=== PATIENT | male | born 1985 | race Caucasian/White ===

== ENCOUNTER 2016-05-04 10:07 | Emergency (ER) | payer OTHER ==
[2016-05-04 10:16] VITALS: BP 174/81; PULSE 93; RESP 16; TEMP 97.7
--- NOTE | 2016-05-04 11:37 | ED ---
Back Pain HPI - General Chief Complaint: Back Pain/Injury Stated Complaint: back injury, [facility] Time Seen by Provider: 05/04/16 10:36 Source: patient, RN notes reviewed Limitations: no limitations - History of Present Illness Initial Comments: Patient is a 30-year-old male presents to the emergency room for evaluation of back pain. Patient states he was at work around 7:30 this morning and went to twist to the left and felt a sharp pain under his right shoulder blade. Patient states since then the pain has gotten worse. Patient states the pain does radiate to his lower back. Patient denies taking anything for pain. Patient states he was sent here to be released for work. Patient states pain is worse when he moves. Patient denies trouble urinating. Patient denies fecal or urinary incontinence. Patient denies numbness or tingling going down his legs. Patient denies saddle anesthesia. Patient denies any other injuries during incident. Patient denies chest pain or shortness of breath. Patient denies headache or dizziness. - Related Data Previous Rx's Medication Instructions Recorded HYDROcodone/APAP 5-325MG [Brussels 1 tab PO Q6HR PRN #12 tab 05/04/16 5-325] Ibuprofen [Motrin] 800 mg PO Q6HR PRN #20 tab 05/04/16 Allergies Allergy/AdvReac Type Severity Reaction Status Date / Time Penicillins Allergy Unknown Verified 05/04/16 11:12 Childhood Review of Systems ROS Statement: Those systems with pertinent positive or pertinent negative responses have been documented in the HPI. ROS Other: All systems not noted in ROS Statement are negative. Past Medical History Past Medical History: No Reported History History of Any Multi-Drug Resistant Organisms: None Reported Past Surgical History: No Surgical Hx Reported Past Psychological History: No Psychological Hx Reported Smoking Status: Never smoker Past Alcohol Use History: None Reported Past Drug Use History: None Reported General Exam - General Exam Comments Initial Comments: Any up in exam room, uncomfortable secondary to pain, no acute distress. Limitations: no limitations General appearance: alert, in no apparent distress Head exam: Present: atraumatic, normocephalic, normal inspection Eye exam: Present: normal appearance ENT exam: Present: normal exam Neck exam: Present: normal inspection Respiratory exam: Present: normal lung sounds bilaterally. Absent: respiratory distress Cardiovascular Exam: Present: regular rate, normal rhythm, normal heart sounds Extremities exam: Present: normal inspection Back exam: Present: normal inspection, muscle spasm (right paraspinal muscle of the mid thoracic and lumbosacral spine), paraspinal tenderness (Paraspinal muscle tenderness on the right side of the mid thoracic and lumbosacral spine) Neurological exam: Present: alert, oriented X3, CN II-XII intact Psychiatric exam: Present: normal affect, normal mood Skin exam: Present: warm, dry, intact, normal color. Absent: rash Course Vital Signs 05/04/16 10:14 Temperature 97.7 F Pulse Rate 93 Respiratory 16 Rate Blood Pressure 174/81 O2 Sat by Pulse 99 Oximetry Medical Decision Making - Medical Decision Making Patient is a 30-year-old male presents emergency room for evaluation of back pain. Patient has no neuro deficits. Patient refused any pain medications. Patient states he wanted a work note to go back to work. Will send patient home with pain medications. Advised patient to take twice a day off and to [place] feels tomorrow morning. Patient states her symptoms not this discussed with him. Return parameters discussed. Disposition Clinical Impression: Strain of mid-back Disposition: HOME SELF-CARE Condition: Good Instructions: Acute Low Back Pain (ED) Additional Instructions: Ice on and off for 10-15 minutes at a time for the next 24-48 hours. Rest. Take ibuprofen as needed for pain. Take Brussels as needed for severe pain. Please follow up with primary care provider in 1-2 days. If any new symptom arises or symptoms worsen, return to ER as soon as possible. Prescriptions: HYDROcodone/APAP 5-325MG [Brussels 5-325] 1 tab PO Q6HR PRN #12 tab PRN Reason: Pain Ibuprofen [Motrin] 800 mg PO Q6HR PRN #20 tab PRN Reason: Pain Referrals: None,Stated [Primary Care Provider] - 1-2 days Time of Disposition: 11:35
== END 2016-05-04 11:54 | disposition home or self-care (01) ==
LOC: EC 10:07
DX: S29.012A Strain of muscle and tendon of back wall of thorax, initial encounter (principal); Z88.0 Allergy status to penicillin; X50.1XXA Overexertion from prolonged static or awkward postures, initial encounter; Y92.69 Other specified industrial and construction area as the place of occurrence of the external cause
CPT/HCPCS: 99283

== ENCOUNTER 2019-09-17 09:05 | Emergency (ER) | payer OTHER ==
[2019-09-17] MEDS ORDERED: ASPIRIN 81 MG PO STA (09:19)
[2019-09-17] MEDS ORDERED: SODIUM CHLORIDE 0.9% 500 ML 500 ML IV STA (09:19)
[2019-09-17 09:21] VITALS: PULSE 95; RESP 18; TEMP 98
--- NOTE | 2019-09-17 09:25 | ED ---
General Adult HPI - General Chief complaint: Chest Pain Stated complaint: chest pain Time Seen by Provider: 09/17/19 09:07 Source: patient, EMS, RN notes reviewed Mode of arrival: EMS Limitations: no limitations - History of Present Illness Initial comments: Patient is an obese 34-year-old male presenting to the emergency room for chest pain. 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 Patient states his chest then became numb. Patient states he went to sit down with his body was and after several minutes the pain resolved. EMS was called and she was brought to the emergency room. Patient does have a history of hypertension for which she takes lisinopril. Patient does not take any other medication. Denies history of diabetes. Patient denies history of DC in immediate family. patient denies any diaphoresis or nausea with this. Pain was not exertional. Patient has no other complaints at this time including shortness of breath, abdominal pain, nausea or vomiting, headache, or visual changes. - Related Data Home Medications Medication Instructions Recorded Confirmed Lisinopril-Hctz 10-12.5 mg 1 tab PO DAILY 09/17/19 09/17/19 [Zestoretic 10-12.5] Allergies Allergy/AdvReac Type Severity Reaction Status Date / Time Penicillins Allergy Unknown Verified 09/17/19 10:50 Childhood Review of Systems ROS Statement: Those systems with pertinent positive or pertinent negative responses have been documented in the HPI. ROS Other: All systems not noted in ROS Statement are negative. Past Medical History Past Medical History: Hypertension History of Any Multi-Drug Resistant Organisms: None Reported Past Surgical History: No Surgical Hx Reported Past Psychological History: No Psychological Hx Reported Smoking Status: Never smoker Past Alcohol Use History: None Reported Past Drug Use History: None Reported General Exam Limitations: no limitations General appearance: alert, in no apparent distress Head exam: Present: atraumatic, normocephalic, normal inspection Eye exam: Present: normal appearance, PERRL, EOMI. Absent: scleral icterus, conjunctival injection, periorbital swelling ENT exam: Present: normal exam, mucous membranes moist Neck exam: Present: normal inspection, full ROM. Absent: tenderness, meningismus, lymphadenopathy Respiratory exam: Present: normal lung sounds bilaterally. Absent: respiratory distress, wheezes, rales, rhonchi, stridor Cardiovascular Exam: Present: regular rate, normal rhythm, normal heart sounds. Absent: systolic murmur, diastolic murmur, rubs, gallop, clicks GI/Abdominal exam: Present: soft, normal bowel sounds. Absent: distended, tenderness, guarding, rebound, rigid Neurological exam: Present: alert Course Vital Signs 09/17/19 09:17 Temperature 98 F Pulse Rate 95 Respiratory 18 Rate Blood Pressure 142/83 O2 Sat by Pulse 99 Oximetry EKG Findings - EKG Comments: EKG Findings:: Normal sinus rhythm, ventricular rate 100, WV interval 178, QTC 448 Medical Decision Making - Medical Decision Making Vitals are stable. EKG is unremarkable, no obvious ischemic changes. CBC CMP are unremarkable. Troponin is negative. D-dimer is normal. Chest x-ray shows no acute process. Patient remains pain-free here in the emergency room. Discussed this case with Dr. Caceres. Pain is atypical in nature. Patient denies any diaphoresis nausea or shortness of breath with this pain. It only lasted minutes and was sharp in nature. Patient will follow up with primary care and return here for any worsening symptoms. - Lab Data Result diagrams: 09/17/19 09:35 09/17/19 09:35 Lab Results 09/17/19 09/17/19 09/17/19 Range/Units 09:35 09:35 09:35 WBC 10.8 H (3.8-10.6) k/uL RBC 5.09 (4.30-5.90) m/uL Hgb 13.8 (13.0-17.5) gm/dL Hct 43.3 (39.0-53.0) % MCV 85.0 (80.0-100.0) fL MCH 27.2 (25.0-35.0) pg MCHC 32.0 (31.0-37.0) g/dL RDW 14.0 (11.5-15.5) % Plt Count 278 (150-450) k/uL Neutrophils % 69 % Lymphocytes % 22 % Monocytes % 4 % Eosinophils % 3 % Basophils % 1 % Neutrophils # 7.5 (1.3-7.7) k/uL Lymphocytes # 2.4 (1.0-4.8) k/uL Monocytes # 0.4 (0-1.0) k/uL Eosinophils # 0.4 (0-0.7) k/uL Basophils # 0.1 (0-0.2) k/uL PT 9.5 (9.0-12.0) sec INR 0.9 (<1.2) APTT 23.1 (22.0-30.0) sec D-Dimer 0.26 (<0.60) mg/L FEU Sodium 137 (137-145) mmol/L Potassium 4.4 (3.5-5.1) mmol/L Chloride 103 (98-107) mmol/L Carbon Dioxide 26 (22-30) mmol/L Anion Gap 8 mmol/L BUN 18 (9-20) mg/dL Creatinine 0.85 (0.66-1.25) mg/dL Est GFR (CKD-EPI)AfAm >90 (>60 ml/min/1.73 sqM) Est GFR (CKD-EPI)NonAf >90 (>60 ml/min/1.73 sqM) Glucose 108 H (74-99) mg/dL Calcium 9.6 (8.4-10.2) mg/dL Magnesium 1.9 (1.6-2.3) mg/dL Total Bilirubin 0.6 (0.2-1.3) mg/dL AST 31 (17-59) U/L ALT 36 (4-49) U/L Alkaline Phosphatase 61 (38-126) U/L Troponin I (0.000-0.034) ng/mL Total Protein 6.8 (6.3-8.2) g/dL Albumin 4.2 (3.5-5.0) g/dL Lipase 53 (23-300) U/L 09/17/19 Range/Units 09:35 WBC (3.8-10.6) k/uL RBC (4.30-5.90) m/uL Hgb (13.0-17.5) gm/dL Hct (39.0-53.0) % MCV (80.0-100.0) fL MCH (25.0-35.0) pg MCHC (31.0-37.0) g/dL RDW (11.5-15.5) % Plt Count (150-450) k/uL Neutrophils % % Lymphocytes % % Monocytes % % Eosinophils % % Basophils % % Neutrophils # (1.3-7.7) k/uL Lymphocytes # (1.0-4.8) k/uL Monocytes # (0-1.0) k/uL Eosinophils # (0-0.7) k/uL Basophils # (0-0.2) k/uL PT (9.0-12.0) sec INR (<1.2) APTT (22.0-30.0) sec D-Dimer (<0.60) mg/L FEU Sodium (137-145) mmol/L Potassium (3.5-5.1) mmol/L Chloride (98-107) mmol/L Carbon Dioxide (22-30) mmol/L Anion Gap mmol/L BUN (9-20) mg/dL Creatinine (0.66-1.25) mg/dL Est GFR (CKD-EPI)AfAm (>60 ml/min/1.73 sqM) Est GFR (CKD-EPI)NonAf (>60 ml/min/1.73 sqM) Glucose (74-99) mg/dL Calcium (8.4-10.2) mg/dL Magnesium (1.6-2.3) mg/dL Total Bilirubin (0.2-1.3) mg/dL AST (17-59) U/L ALT (4-49) U/L Alkaline Phosphatase (38-126) U/L Troponin I <0.012 (0.000-0.034) ng/mL Total Protein (6.3-8.2) g/dL Albumin (3.5-5.0) g/dL Lipase (23-300) U/L Disposition Clinical Impression: Atypical chest pain Disposition: HOME SELF-CARE Condition: Good Instructions (If sedation given, give patient instructions): Chest Pain (ED) Additional Instructions: Please follow-up with your doctor in one to 2 days. Please return to the emergency room for any worsening symptoms. Is patient prescribed a controlled substance at d/c from ED?: No Referrals: Radha Daugherty MD [Primary Care Provider] - 1-2 days Time of Disposition: 11:10
[2019-09-17 09:46] LABS: Basophils # (A) 0.1 k/uL (0-0.2); Basophils % (A) 1 %; Eosinophils # (A) 0.4 k/uL (0-0.7); Eosinophils % (A) 3 %; HCT 43.3 % (39.0-53.0); HGB 13.8 gm/dL (13.0-17.5); Lymphocytes # (A) 2.4 k/uL (1.0-4.8); Lymphocytes % (A) 22 %; MCH 27.2 pg (25.0-35.0); Mean Platelet Volume 7.2; Monocytes # (A) 0.4 k/uL (0-1.0); Monocytes % (A) 4 %; Neutrophils # (A) 7.5 k/uL (1.3-7.7); Neutrophils % (A) 69 %; Platelet Count 278 k/uL (150-450); RBC 5.09 m/uL (4.30-5.90); WBC 10.8 k/uL (3.8-10.6)
[2019-09-17 09:57] LABS: ALT 36 U/L (4-49); AST 31 U/L (17-59); African American GFR (CKD) >90 (>60 ml/min/1.73 sqM); Albumin 4.2 g/dL (3.5-5.0); Alkaline Phosphatase 61 U/L (38-126); Anion Gap 8 mmol/L; Blood Urea Nitrogen 18 mg/dL (9-20); Calcium 9.6 mg/dL (8.4-10.2); Carbon Dioxide 26 mmol/L (22-30); Chloride 103 mmol/L (98-107); Glucose 108 mg/dL (74-99); Magnesium 1.9 mg/dL (1.6-2.3); Non-African American GFR(CKD) >90 (>60 ml/min/1.73 sqM); Potassium 4.4 mmol/L (3.5-5.1); Sodium 137 mmol/L (137-145); Total Bilirubin 0.6 mg/dL (0.2-1.3); Total Protein 6.8 g/dL (6.3-8.2)
[2019-09-17 10:00] LABS: D-Dimer 0.26 mg/L FEU (<0.60); INR 0.9 (<1.2); Prothrombin Time 9.5 sec (9.0-12.0)
[2019-09-17 10:01] LABS: Partial Thromboplastin Time 23.1 sec (22.0-30.0)
--- NOTE | 2019-09-17 10:45 | XR ---
EXAMINATION TYPE: XR chest 2V DATE OF EXAM: 09/17/2019 COMPARISON: None INDICATION: Chest pain TECHNIQUE: Frontal and lateral views of the chest are obtained. FINDINGS: The heart size is normal. The pulmonary vasculature is normal. The lungs are clear. IMPRESSION: 1. No acute pulmonary process.
[2019-09-17 11:23] VITALS: BP 119/73
== END 2019-09-17 11:22 | disposition home or self-care (01) ==
LOC: EC 09:05
DX: R07.89 Other chest pain (principal); R20.0 Anesthesia of skin; I10 Essential (primary) hypertension; Z79.899 Other long term (current) drug therapy; Z88.0 Allergy status to penicillin
CPT/HCPCS: 36415; 71046; 80053; 83690; 83735; 84484; 85025; 85379; 85610; 85730; 93005; 99285

== ENCOUNTER 2019-10-05 10:16 | Emergency (ER) | payer OTHER ==
--- NOTE | 2019-10-05 11:13 | XR ---
EXAMINATION TYPE: XR chest 2V DATE OF EXAM: 10/05/2019 COMPARISON: 09/17/2019 HISTORY: 35-year-old male with chest pain TECHNIQUE: PA and lateral views FINDINGS: The cardiomediastinal silhouette, aorta, and pulmonary vasculature are within normal limits. Mild int erstitial prominence, similar to 09/17/2019. No shawanda consolidation or pleural effusion. IMPRESSION: Chronic interstitial prominence, correlate for possible bronchitis or asthma. No focal infiltrate.
[2019-10-05 11:26] LABS: Basophils # (A) 0.1 k/uL (0-0.2); Basophils % (A) 1 %; Eosinophils # (A) 0.3 k/uL (0-0.7); Eosinophils % (A) 3 %; HCT 45.7 % (39.0-53.0); HGB 14.9 gm/dL (13.0-17.5); Lymphocytes % (A) 25 %; MCH 27.7 pg (25.0-35.0); MCHC 32.6 g/dL (31.0-37.0); MCV 84.9 fL (80.0-100.0); Monocytes # (A) 0.4 k/uL (0-1.0); Monocytes % (A) 5 %; Neutrophils # (A) 5.3 k/uL (1.3-7.7); Neutrophils % (A) 65 %; Platelet Count 298 k/uL (150-450); RBC 5.39 m/uL (4.30-5.90); RDW 14.1 % (11.5-15.5); WBC 8.1 k/uL (3.8-10.6)
--- NOTE | 2019-10-05 11:28 | ED ---
Chest Pain HPI - General Chief Complaint: Chest Pain Stated Complaint: Chest Pain Time Seen by Provider: 10/05/19 10:30 Source: patient Mode of arrival: ambulatory Limitations: no limitations - History of Present Illness Initial Comments: Patient is a 34-year-old obese male presenting to emergency Department with complaints of chest pain with radiation down the left arm that has been intermittent for the past 2 weeks. Patient states he was seen in the ER 2 weeks ago for same complaint, had normal workup and specific follow-up with cardiology. Patient states she did follow up with his PCP and has been waiting for the referral for the cardiology to go through. In the meantime he has been having intermittent chest tightness, pain is with radiation over the past 2 weeks. He states it can happen at rest and/or with activity. He also admits to some mild shortness of breath with this tightness. He denies any fever, cough, abdominal pain, nausea, vomiting. He has no further complaints at this time. Upon arrival to the ER, patient was hypertensive 150/103, rest of vitals are normal. He states he did take his blood pressure medication prior to arrival as well as 3 baby aspirin's. - Related Data Home Medications Medication Instructions Recorded Confirmed Lisinopril-Hctz 10-12.5 mg 1 tab PO DAILY 09/17/19 09/17/19 [Zestoretic 10-12.5] Allergies Allergy/AdvReac Type Severity Reaction Status Date / Time Penicillins Allergy Unknown Verified 10/05/19 10:21 Childhood Review of Systems ROS Statement: Those systems with pertinent positive or pertinent negative responses have been documented in the HPI. ROS Other: All systems not noted in ROS Statement are negative. EKG Findings - EKG Comments: EKG Findings:: Normal sinus rhythm, normal ECG, no signs of acute ischemia. Ventricular rate 97, GA interval 168, QT 340. Past Medical History Past Medical History: Hypertension History of Any Multi-Drug Resistant Organisms: None Reported Past Surgical History: No Surgical Hx Reported Past Psychological History: No Psychological Hx Reported Smoking Status: Never smoker Past Alcohol Use History: None Reported Past Drug Use History: None Reported General Exam - General Exam Comments Initial Comments: GENERAL: Patient is well-developed and well-nourished. Patient is obese. Patient is nontoxic and in no acute distress. HEAD: Atraumatic, normocephalic. EYES: Pupils equal round and reactive to light, extraocular movements intact, sclera anicteric, conjunctiva are normal. Eyelids were unremarkable. ENT: TMs normal, nares patent, oropharynx clear without exudates. Moist mucous membranes. NECK: Normal range of motion, supple without lymphadenopathy or JVD. LUNGS: Unlabored respirations. Breath sounds clear to auscultation bilaterally and equal. No wheezes rales or rhonchi. HEART: Regular rate and rhythm without murmurs, rubs or gallops. ABDOMEN: Soft, nontender, normoactive bowel sounds. No guarding, no rebound. No masses appreciated. : Deferred MUSCULOSKELETAL: Normal extremities with adequate strength and normal range of motion, no pitting or edema. No clubbing or cyanosis. NEUROLOGICAL: Patient is alert and oriented x 3. Motor and sensory are also intact. Cranial nerves II through XII grossly intact. Symmetrical smile. Normal speech, normal gait. PSYCH: Normal mood, normal affect. SKIN: Warm, Dry, normal turgor, no rashes or lesions noted. Limitations: no limitations Course Vital Signs 10/05/19 10/05/19 10/05/19 10:17 10:21 11:21 Temperature 97.7 F Pulse Rate 98 80 Respiratory 20 18 18 Rate Blood Pressure 150/103 142/90 O2 Sat by Pulse 99 96 Oximetry Chest Pain [facility] Patient is a 34-year-old male here for intermittent chest pain with radiation to left arm for the past 2 weeks. He was seen 2 weeks ago for same complaint had normal workup. He's been waiting for referral to cardiology. He was slightly hypertensive upon arrival, rest of exam is within normal limits. EKG shows normal sinus rhythm, no signs of acute ischemia. Chest x-ray shows no acute abnormality, no signs of infiltrate. Lab work shows no acute process, troponin is normal, d-dimer is normal, BNP is also normal. Patient has been resting comfortably in the ER. I discussed these findings with the patient and strongly recommend admission for cardiac workup. Patient is declining this at this time. I did discuss the risk of him including and patient is still wanting to leave. He will sign an AMA form. He will call cardiology again tomorrow morning for follow-up. Strict return parameters were discussed with the patient and he verbalized understanding. Case discussed with Dr. Maradiaga. Disposition Clinical Impression: Chest pain Disposition: Left Against Medical Advice Condition: Stable Instructions (If sedation given, give patient instructions): Chest Pain (ED) Additional Instructions: Please return to the Emergency Department if symptoms worsen or any other concerns. Follow-up with cardiology tomorrow morning. Is patient prescribed a controlled substance at d/c from ED?: No Referrals: Radha Daugherty MD [Primary Care Provider] - 1-2 days
[2019-10-05 11:36] LABS: ALT 45 U/L (4-49); AST 39 U/L (17-59); African American GFR (CKD) >90 (>60 ml/min/1.73 sqM); Albumin 4.4 g/dL (3.5-5.0); Alkaline Phosphatase 51 U/L (38-126); Anion Gap 8 mmol/L; Blood Urea Nitrogen 14 mg/dL (9-20); Calcium 9.9 mg/dL (8.4-10.2); Carbon Dioxide 26 mmol/L (22-30); Chloride 102 mmol/L (98-107); Glucose 105 mg/dL (74-99); Magnesium 1.9 mg/dL (1.6-2.3); Non-African American GFR(CKD) >90 (>60 ml/min/1.73 sqM); Potassium 4.3 mmol/L (3.5-5.1); Sodium 136 mmol/L (137-145); Total Bilirubin 0.6 mg/dL (0.2-1.3); Total Protein 7.1 g/dL (6.3-8.2)
[2019-10-05 11:42] LABS: D-Dimer 0.21 mg/L FEU (<0.60); INR 0.9 (<1.2); Partial Thromboplastin Time 22.5 sec (22.0-30.0); Prothrombin Time 9.6 sec (9.0-12.0)
[2019-10-05 11:54] VITALS: RESP 18
[2019-10-05 12:36] VITALS: BP 148/89; PULSE 76; TEMP 98
== END 2019-10-05 12:36 | disposition left against medical advice (07) ==
LOC: EC 10:16
DX: R07.9 Chest pain, unspecified (principal); I10 Essential (primary) hypertension; E66.9 Obesity, unspecified; R06.02 Shortness of breath; Z68.44 Body mass index [BMI] 60.0-69.9, adult; Z88.0 Allergy status to penicillin; Z79.899 Other long term (current) drug therapy; Z53.20 Procedure and treatment not carried out because of patient's decision for unspecified reasons
CPT/HCPCS: 36415; 71046; 80053; 83735; 83880; 84484; 85025; 85379; 85610; 85730; 93005; 99285

== ENCOUNTER 2019-10-30 11:18 | Observation (INO) | payer OTHER ==
[2019-10-30] MEDS ORDERED: ASPIRIN 81 MG PO STA (11:42)
[2019-10-30] MEDS ORDERED: SODIUM CHLORIDE 0.9% 500 ML 500 ML IV STA (11:42)
[2019-10-30] MEDS ORDERED: LORazepam 2 MG/ML INJ IV STA (12:03)
[2019-10-30 12:20] LABS: Basophils # (A) 0.1 k/uL (0-0.2); Basophils % (A) 1 %; Eosinophils # (A) 0.3 k/uL (0-0.7); Eosinophils % (A) 3 %; HCT 47.1 % (39.0-53.0); HGB 15.2 gm/dL (13.0-17.5); Lymphocytes % (A) 25 %; MCH 27.4 pg (25.0-35.0); MCHC 32.3 g/dL (31.0-37.0); MCV 84.7 fL (80.0-100.0); Monocytes # (A) 0.5 k/uL (0-1.0); Monocytes % (A) 4 %; Neutrophils % (A) 67 %; Platelet Count 328 k/uL (150-450); RBC 5.56 m/uL (4.30-5.90); RDW 13.9 % (11.5-15.5); WBC 11.9 k/uL (3.8-10.6)
[2019-10-30 12:33] LABS: ALT 45 U/L (4-49); AST 47 U/L (17-59); African American GFR (CKD) >90 (>60 ml/min/1.73 sqM); Albumin 4.5 g/dL (3.5-5.0); Alkaline Phosphatase 51 U/L (38-126); Anion Gap 11 mmol/L; Blood Urea Nitrogen 17 mg/dL (9-20); Calcium 9.5 mg/dL (8.4-10.2); Carbon Dioxide 24 mmol/L (22-30); Chloride 101 mmol/L (98-107); Glucose 99 mg/dL (74-99); Magnesium 1.9 mg/dL (1.6-2.3); Non-African American GFR(CKD) >90 (>60 ml/min/1.73 sqM); Sodium 136 mmol/L (137-145); Total Bilirubin 0.7 mg/dL (0.2-1.3); Total Protein 7.5 g/dL (6.3-8.2)
[2019-10-30 12:53] LABS: Potassium 4.5 mmol/L (3.5-5.1)
[2019-10-30 12:54] LABS: INR 0.9 (<1.2)
[2019-10-30 12:55] LABS: Partial Thromboplastin Time 23.4 sec (22.0-30.0); Prothrombin Time 9.6 sec (9.0-12.0)
--- NOTE | 2019-10-30 13:10 | CT ---
EXAMINATION TYPE: CT chest angio for PE DATE OF EXAM: 10/30/2019 COMPARISON: Chest x-ray October 05, 2019. HISTORY: chest pain, difficulty breathing CT DLP: 1918.3 mGycm. Automated Exposure Control for Dose Reduction was Utilized. CONTRAST: CTA scan of the thorax is performed with IV Contrast, patient injected with 100 mL of Isovue 370, pul monary embolism protocol. MIP Images are created on CT scanner and reviewed. FINDINGS: LUNGS: Poor inspiration on current study noted. Lungs are grossly clear without suspicious focal cons olidation or ground glass opacity. No pleural effusion or pneumothorax is seen bilaterally. No suspic ious masses. MEDIASTINUM: There is suboptimal bolus with majority of contrast and SVC, there is denser contrast i n the aorta and pulmonary artery. Exam is essentially nondiagnostic for evaluation of acute pulmonary embolism. There are no greater than 1 cm hilar or mediastinal lymph nodes. No pericardial effusion is seen. Stable mild cardiomegaly. OTHER: Diffuse fatty infiltration of liver noted. Mild to moderate multilevel spurring in the thoraci c spine. IMPRESSION: 1. Nondiagnostic for acute pulmonary embolism. 2. Poor inspiration without suspicious acute pulmonary process.
[2019-10-30] MEDS ORDERED: HEPARIN SOD,PORK IN 0.45% NACL 25,000 UNIT in 0.45% NACL 1 250ML.BAG IV SCH (13:30)
[2019-10-30] MEDS ORDERED: HEPARIN SODIUM,PORCINE 5,000 UNIT/ML 1 ML VIAL IV ONE (13:30)
[2019-10-30] MEDS ORDERED: HEPARIN SODIUM,PORCINE 5,000 UNIT/ML 1 ML VIAL IV PRN (13:30)
[2019-10-30] MEDS ORDERED: NITROGLYCERIN SL TABS 0.4 MG TAB SUBLINGUAL PRN (13:57)
--- NOTE | 2019-10-30 13:58 | ED ---
General Adult HPI - General Source: patient, RN notes reviewed, old records reviewed Mode of arrival: ambulatory Limitations: no limitations <Silas Fierro - Last Filed: 10/30/19 13:55> <Brandon Caceres - Last Filed: 10/30/19 14:05> - General Chief complaint: Chest Pain Stated complaint: Chest Pain Time Seen by Provider: 10/30/19 11:35 - History of Present Illness Initial comments: 34-year-old male patient with CT for evaluation. Patient reports that about an hour before he came in he had some substernal chest pain and pressure. Reports that his heart was racing or lobar shortness of breath. States that he has had multiple occurrence of this over the last few months. Has come to the ER for this on 2 separate occasions. Patient left AGAINST MEDICAL ADVICE the second time. However he has had no positive troponins were significant EKG findings. Denies any other areas of pain. Denies any other complaints. Systemic: Pt denies fatigue, fever/chills, rash. Pt denies weakness, night swea ts, weight loss. Neuro: Pt denies headache, visual disturbances, syncope or pre-syncope. HEENT: Pt denies ocular discharge or irritation, otalgia, rhinorrhea, pharyngitis or notable lymphadenopathy. Cardiopulmonary: Pt denies heart palpitations, dyspnea on exertion. Abdominal/GI: Pt denies abdominal pain, n/v/d. : Pt denies dysuria, burning w/ urination, frequency/urgency. Denies new onset urinary or bowel incontinence. MSK: Pt denies myalgia, loss of strength or function in extremities. Neuro: Pt denies new onset weakness, paresthesias. (Silas Fierro) - Related Data Home Medications Medication Instructions Recorded Confirmed Lisinopril-Hctz 10-12.5 mg 1 tab PO DAILY 09/17/19 10/30/19 [Zestoretic 10-12.5] Nitroglycerin Sl Tabs [Nitrostat] 0.4 mg SUBLINGUAL Q5M PRN 10/30/19 10/30/19 Omeprazole 40 mg PO DAILY PRN 10/30/19 10/30/19 Allergies Allergy/AdvReac Type Severity Reaction Status Date / Time Penicillins Allergy Unknown Verified 10/30/19 12:15 Childhood Review of Systems ROS Other: All systems not noted in ROS Statement are negative. <Silas Fierro - Last Filed: 10/30/19 13:55> ROS Other: All systems not noted in ROS Statement are negative. <Brandon Caceres - Last Filed: 10/30/19 14:05> ROS Statement: Those systems with pertinent positive or pertinent negative responses have been documented in the HPI. Past Medical History Past Medical History: Hypertension History of Any Multi-Drug Resistant Organisms: None Reported Past Surgical History: No Surgical Hx Reported Past Psychological History: No Psychological Hx Reported Smoking Status: Never smoker Past Alcohol Use History: None Reported Past Drug Use History: None Reported <Silas Fierro - Last Filed: 10/30/19 13:55> General Exam Limitations: no limitations <Silas Fierro - Last Filed: 10/30/19 13:55> - General Exam Comments Initial Comments: Constitutional: NAD, AOX3, Pt has pleasant affect. HEENT: NC/AT, trachea midline, neck supple, no lymphadenopathy. Posterior pharynx non erythematous, without exudates. External ears appear normal, without discharge. Mucous membranes moist. Eyes PERRLA, EOM intact. There is no scleral icterus. No pallor noted. Cardiopulmonary: RRR, no murmurs, rubs or gallops, no JVD noted. Lungs CTAB in anterior and posterior fuentes. No peripheral edema. Abdominal exam: Abdomen soft and non-distended. Abdomen non-tender to palpation in all 4 quadrants. Bowel sounds active in LLQ. No hepatosplenomegaly. No ecchymosis Neuro: CN II-XII grossly intact. No nuchal rigidity. No raccon eyes, no barr sign, no hemotympanum. No cervical spinal tenderness. MSK: No posterior calf tenderness bilaterally, homans sign negative bilaterally. Posterior tibialis and radial pulse +2 bilaterally. Sensation intact in upper and lower extremities. Full active ROM in upper and lower extremities, 5/5 stregnth. (Silas Fierro) Course <Brandon Caceres - Last Filed: 10/30/19 14:05> Vital Signs 10/30/19 10/30/19 10/30/19 11:21 12:11 12:30 Temperature 97.9 F Pulse Rate 127 H 105 H 116 H Pulse Rate [ 105 H Apical] Respiratory 24 24 18 Rate Blood Pressure 138/80 144/91 144/91 O2 Sat by Pulse 100 100 100 Oximetry - Reevaluation(s) Reevaluation #1: 10/30/19 14:04 PA supervision: I personally evaluate this case patient presents with complaints of chest pain. He is had several recent complaints of this. Workup appears be negative. He will be admitted however for rule out. I did discuss the case wit h Dr. Lopez. (Brandon Caceres) Medical Decision Making - Lab Data Result diagrams: 10/30/19 12:00 10/30/19 12:00 - EKG Data -: EKG Interpreted by Me (and Dr. Caceres ) <Silas Fierro - Last Filed: 10/30/19 13:55> - Lab Data Result diagrams: 10/30/19 12:00 10/30/19 12:00 <Brandon Caceres - Last Filed: 10/30/19 14:05> - Medical Decision Making 34-year-old male patient with CT for evaluation. Patient reports that about an hour before he came in he had some substernal chest pain and pressure. Reports that his heart was racing or lobar shortness of breath. States that he has had multiple occurrence of this over the last few months. Has come to the ER for this on 2 separate occasions. Patient left AGAINST MEDICAL ADVICE the second time. However he has had no positive troponins were significant EKG findings. Denies any other areas of pain. Denies any other complaints. Patient vital signs did display some tachycardia. Laboratory investigations are overall unremarkable. CTA was nondiagnostic for acute pulmonary embolism. No suspicious pulmonary process was otherwise noted. Patient was placed on low intensity heparin and a d-dimer was ordered. Will be admitted for further evaluation. Case discussed with Dr. Caceres. (Silas Fierro) - Lab Data Lab Results 10/30/19 10/30/19 10/30/19 Range/Units 12:00 12:00 12:00 WBC 11.9 H (3.8-10.6) k/uL RBC 5.56 (4.30-5.90) m/uL Hgb 15.2 (13.0-17.5) gm/dL Hct 47.1 (39.0-53.0) % MCV 84.7 (80.0-100.0) fL MCH 27.4 (25.0-35.0) pg MCHC 32.3 (31.0-37.0) g/dL RDW 13.9 (11.5-15.5) % Plt Count 328 (150-450) k/uL Neutrophils % 67 % Lymphocytes % 25 % Monocytes % 4 % Eosinophils % 3 % Basophils % 1 % Neutrophils # 8.0 H (1.3-7.7) k/uL Lymphocytes # 3.0 (1.0-4.8) k/uL Monocytes # 0.5 (0-1.0) k/uL Eosinophils # 0.3 (0-0.7) k/uL Basophils # 0.1 (0-0.2) k/uL PT 9.6 (9.0-12.0) sec INR 0.9 (<1.2) APTT 23.4 (22.0-30.0) sec D-Dimer (<0.60) mg/L FEU Sodium 136 L (137-145) mmol/L Potassium 4.5 (3.5-5.1) mmol/L Chloride 101 (98-107) mmol/L Carbon Dioxide 24 (22-30) mmol/L Anion Gap 11 mmol/L BUN 17 (9-20) mg/dL Creatinine 0.88 (0.66-1.25) mg/dL Est GFR (CKD-EPI)AfAm >90 (>60 ml/min/1.73 sqM) Est GFR (CKD-EPI)NonAf >90 (>60 ml/min/1.73 sqM) Glucose 99 (74-99) mg/dL Calcium 9.5 (8.4-10.2) mg/dL Magnesium 1.9 (1.6-2.3) mg/dL Total Bilirubin 0.7 (0.2-1.3) mg/dL AST 47 (17-59) U/L ALT 45 (4-49) U/L Alkaline Phosphatase 51 (38-126) U/L Troponin I (0.000-0.034) ng/mL NT-Pro-B Natriuret Pep pg/mL Total Protein 7.5 (6.3-8.2) g/dL Albumin 4.5 (3.5-5.0) g/dL 10/30/19 10/30/19 10/30/19 Range/Units 12:00 12:00 12:00 WBC (3.8-10.6) k/uL RBC (4.30-5.90) m/uL Hgb (13.0-17.5) gm/dL Hct (39.0-53.0) % MCV (80.0-100.0) fL MCH (25.0-35.0) pg MCHC (31.0-37.0) g/dL RDW (11.5-15.5) % Plt Count (150-450) k/uL Neutrophils % % Lymphocytes % % Monocytes % % Eosinophils % % Basophils % % Neutrophils # (1.3-7.7) k/uL Lymphocytes # (1.0-4.8) k/uL Monocytes # (0-1.0) k/uL Eosinophils # (0-0.7) k/uL Basophils # (0-0.2) k/uL PT (9.0-12.0) sec INR (<1.2) APTT (22.0-30.0) sec D-Dimer 0.20 (<0.60) mg/L FEU Sodium (137-145) mmol/L Potassium (3.5-5.1) mmol/L Chloride (98-107) mmol/L Carbon Dioxide (22-30) mmol/L Anion Gap mmol/L BUN (9-20) mg/dL Creatinine (0.66-1.25) mg/dL Est GFR (CKD-EPI)AfAm (>60 ml/min/1.73 sqM) Est GFR (CKD-EPI)NonAf (>60 ml/min/1.73 sqM) Glucose (74-99) mg/dL Calcium (8.4-10.2) mg/dL Magnesium (1.6-2.3) mg/dL Total Bilirubin (0.2-1.3) mg/dL AST (17-59) U/L ALT (4-49) U/L Alkaline Phosphatase (38-126) U/L Troponin I <0.012 (0.000-0.034) ng/mL NT-Pro-B Natriuret Pep 24 pg/mL Total Protein (6.3-8.2) g/dL Albumin (3.5-5.0) g/dL - EKG Data EKG Comments: Ventricular rate 117, NM interval 166, QRS 94, QT/QTc 316/440, Sinus tac hycardia, otherwise normal ekg. (Silas Fierro) Disposition Is patient prescribed a controlled substance at d/c from ED?: No <Silas Fierro - Last Filed: 10/30/19 13:55> <Brandon Caceres - Last Filed: 10/30/19 14:05> Clinical Impression: Chest pain Disposition: ADMITTED IP TO THIS HOSP Condition: Serious Referrals: Radha Daugherty MD [Primary Care Provider] - 1-2 days
--- NOTE | 2019-10-30 15:11 | P.HPIM ---
History of Present Illness This is a 34-year-old male came in with complaints of substernal chest pain has been going on for the about 2 months in the retrosternal area. He feels like something is stuck in there although patient doesn't have pain is on and off and lately has it severe patient patient was seen in the few weeks ago in the ER and was sent home at that time. Patient had a normal EKG. Patient has questionable history of diaphoresis associated chest pain patient denied any radiation during this episode of chest pain and had radiation to left hand during his previous visits to ER. Denied any shortness of breath the patient pain radiates around the chest on the left side into back of the shoulders patient chest pain is not precipitated by food. Patient pain used to be minutes now lasted about one hour nonpruritic in nature. Patient had a sleep study in the past. Patient was also complaining of near syncopal episodes although never had any syncope Review of Systems REVIEW OF SYSTEMS: CONSTITUTIONAL: No fever, no malaise, no fatigue. HEENT: No recent visual problems or hearing problems. Denied any sore throat. CARDIOVASCULAR: No orthopnea, PND, no palpitations, no syncope. PULMONARY: No shortness of breath, no cough, no hemoptysis. GASTROINTESTINAL: No diarrhea, no nausea, no vomiting, no abdominal pain. NEUROLOGICAL: No headaches, no weakness, no numbness. HEMATOLOGICAL: Denies any bleeding or petechiae. GENITOURINARY: Denies any burning micturition, frequency, or urgency. MUSCULOSKELETAL/RHEUMATOLOGICAL: Denies any joint pain, swelling, or any muscle pain. ENDOCRINE: Denies any polyuria or polydipsia. The rest of the 14-point review of systems is negative. Past Medical History Past Medical History: Hypertension History of Any Multi-Drug Resistant Organisms: None Reported Past Surgical History: No Surgical Hx Reported Past Psychological History: No Psychological Hx Reported Smoking Status: Never smoker Past Alcohol Use History: None Reported Past Drug Use History: None Reported Medications and Allergies Home Medications Medication Instructions Recorded Confirmed Type Lisinopril-Hctz 10-12.5 mg 1 tab PO DAILY 09/17/19 10/30/19 History [Zestoretic 10-12.5] Nitroglycerin Sl Tabs [Nitrostat] 0.4 mg SUBLINGUAL Q5M PRN 10/30/19 10/30/19 History Omeprazole 40 mg PO DAILY PRN 10/30/19 10/30/19 History Allergies Allergy/AdvReac Type Severity Reaction Status Date / Time Penicillins Allergy Unknown Verified 10/30/19 12:15 Childhood Physical Exam Vitals: Vital Signs Temp Pulse Pulse Resp BP Pulse Ox 10/30/19 12:30 116 H 18 144/91 100 10/30/19 12:11 105 H 105 H 24 144/91 100 10/30/19 11:21 97.9 F 127 H 24 138/80 100 Intake and Output 10/30/19 10/30/19 10/30/19 06:59 14:59 22:59 Other: Weight 199.581 kg PHYSICAL EXAMINATION: GENERAL: The patient is alert and oriented x3, not in any acute distress. Morbidly obese HEENT: Pupils are round and equally reacting to light. EOMI. No scleral icterus. No conjunctival pallor. Normocephalic, atraumatic. No pharyngeal erythema. No thyromegaly. CARDIOVASCULAR: S1 and S2 present. No murmurs, rubs, or gallops. PULMONARY: Chest is clear to auscultation, no wheezing or crackles. ABDOMEN: Soft, nontender, nondistended, normoactive bowel sounds. No palpable organomegaly. MUSCULOSKELETAL: No joint swelling or deformity. EXTREMITIES: No cyanosis, clubbing, or pedal edema. NEUROLOGICAL: Gross neurological examination did not reveal any focal deficits. SKIN: No rashes. Results CBC & Chem 7: 10/30/19 12:00 10/30/19 12:00 Labs: Abnormal Lab Results - Last 24 Hours (Table) 10/30/19 10/30/19 Range/Units 12:00 12:00 WBC 11.9 H (3.8-10.6) k/uL Neutrophils # 8.0 H (1.3-7.7) k/uL Sodium 136 L (137-145) mmol/L Assessment and Plan Plan: -Chest pain: Atypical, will rule out acute causes syndromes unsure of the etiology of his chest pain. Patient will be evaluated by cardiology. -Near syncope: Will check also orthostatic vitals we'll Allsop an echocardiog keturah. -Hypertension -Morbid obesity
[2019-10-31 04:42] VITALS: TEMP 97.9
[2019-10-31 07:01] LABS: Basophils # (A) 0.1 k/uL (0-0.2); Basophils % (A) 1 %; Eosinophils # (A) 0.3 k/uL (0-0.7); Eosinophils % (A) 3 %; HCT 44.7 % (39.0-53.0); HGB 14.1 gm/dL (13.0-17.5); Lymphocytes # (A) 2.5 k/uL (1.0-4.8); Lymphocytes % (A) 29 %; MCH 27.2 pg (25.0-35.0); MCHC 31.5 g/dL (31.0-37.0); MCV 86.2 fL (80.0-100.0); Mean Platelet Volume 7.4; Monocytes # (A) 0.4 k/uL (0-1.0); Monocytes % (A) 5 %; Neutrophils # (A) 5.2 k/uL (1.3-7.7); Neutrophils % (A) 61 %; Platelet Count 280 k/uL (150-450); RBC 5.19 m/uL (4.30-5.90); RDW 14.2 % (11.5-15.5); WBC 8.5 k/uL (3.8-10.6)
[2019-10-31 07:44] VITALS: BP 159/85; PULSE 83; RESP 14
[2019-10-31 08:08] LABS: Cholesterol 194 mg/dL (<200); HDL Cholesterol 39 mg/dL (40-60); LDL Cholesterol,Calculated 112 mg/dL (0-99); Triglycerides 215 mg/dL (<150)
[2019-10-31] MEDS ORDERED: ASPIRIN 325 MG TAB PO SCH (09:00)
[2019-10-31] MEDS ORDERED: DOBUTamine DRIP for NUC MED 500 MG in DEXTROSE/WATER 1 250ML.BAG IV ONE (09:27)
--- NOTE | 2019-10-31 10:42 | ECHOF ---
Referral Reason:near syncope MEASUREMENTS -------- HEIGHT: 172.7 cm WEIGHT: 199.6 kg BP: 144/91 IVSd: 1.7 cm (0.6 - 1.1) LVIDd: 4.4 cm (3.9 - 5.3) LVPWd: 1.6 cm (0.6 - 1.1) IVSs: 2.4 cm LVIDs: 3.2 cm LVPWs: 1.7 cm LAESV Index (A-L): 30.11 ml/m Ao Diam: 3.4 cm (2.0 - 3.7) AV Cusp: 2.3 cm (1.5 - 2.6) MV EXCURSION: 21.020 mm (> 18.000) MV EF SLOPE: 89 mm/s (70 - 150) EPSS: 0.8 cm MV E Yovany: 0.97 m/s MV DecT: 156 ms MV A Yovany: 0.99 m/s MV E/A Ratio: 0.98 RAP: 5.00 mmHg RVSP: 28.29 mmHg FINDINGS -------- This was a technically difficult study with suboptimal views. The left ventricular size is normal. There is moderate concentric left ventricular hypertrophy. O verall left ventricular systolic function is normal with, an EF between 55 - 60 %. The RV was not well visualized. LA is midly dilated 29-33ml/m2. The right atrium was not well visualized. Lumason used The aortic valve was not well visualized. There is no evidence of aortic regurgitation. There is no evidence of aortic stenosis. No mitral regurgitation. Mild tricuspid regurgitation present. There is no evidence of pulmonary hypertension. The right v entricular systolic pressure, as measured by Doppler, is 28.29mmHg. The pulmonic valve was not well visualized. The aortic root size is normal. IVC Not well visulized. There is no pericardial effusion. CONCLUSIONS -------- 1. The left ventricular size is normal. 2. There is moderate concentric left ventricular hypertrophy. 3. Overall left ventricular systolic function is normal with, an EF between 55 - 60 %. 4. LA is midly dilated 29-33ml/m2. 5. Mild tricuspid regurgitation present. [employer]: Karina Hdz RDCS
[2019-10-31] MEDS ORDERED: NITROGLYCERIN SL TABS 0.4 MG TAB SUBLINGUAL PRN (10:47)
[2019-10-31] MEDS ORDERED: LISINOPRIL-HCTZ 10-12.5 MG 1 EACH TAB PO SCH (11:00)
--- NOTE | 2019-10-31 11:01 | P.CRDCN ---
History of Present Illness History of present illness: HISTORY OF PRESENTING ILLNESS This is a pleasant 34-year-old male past medical history significant for hypertension and morbid obesity. He denies prior history of coronary artery disease and does not follow with a surveillance system monitor for any reason. He has no family history of premature coronary artery disease. We have been asked to see in consultation for chest pain. He states for the previous one month he has been experiencing intermittent episodes of tight heavy sensation in the midsternal left precordial region. The first time it happened was approximately one month ago. 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 After it was sharp it became heavy and tight. It was associated with feeling somewhat short of breath and radiated down his left arm. He presented to the ER at that time. An EKG ruled out an acute event and he was discharged home. Since that time he has had multiple episodes. He states he has a constant discomfort in the chest if feels like a golf ball is resting in the middle of his chest. At times it is exacerbated by movement of his arms or breathing but other times he feels as it is exacerbated by activity or exertion. Yesterday when this happened he was at work again. It was described as a very tight sensation that radiated to the left arm and was associated with palpitations. He states his heart rate was fluctuating between 90 and 150. On arrival his EKG revealed sinus tachycardia with a heart rate of 117. Telemetry tracings persistently reveal sinus mechanism. He continues to have a vague ache in the midsternal region but no acute tightness at this time. Echocardiogram obtained reveals preserved LV systolic function with ejection fraction 55-60% with a mildly dilated left atrium, mild tricuspid regurgitation and moderate concentric LVH. DIAGNOSTICS EKG reveals sinus tachycardia heart rate of [address] or T wave abnormalities noted. CTA of the chest is nondiagnostic for PE, lungs are grossly clear and no significant aortic abnormalities noted although suboptimal bolus was viewed. Laboratory reviewed, WBC 11.9. on admission repeat today 8.5, hemoglobin 14.1, platelets 280, d-dimer 0.2, sodium 136, potassium 4.5, creatinine 0.88, magnesium 1.9, cardiac enzymes negative 3 and LDL 112 Current cardiac medications include lisinopril 10 mg daily with hydrochlorothiazide 12.5 mg daily. REVIEW OF SYSTEMS At the time of my exam: CONSTITUTIONAL: Denies fever or chills. CARDIOVASCULAR: Denies chest pain, shortness of breath, orthopnea, PND or palpitations. RESPIRATORY: Denies cough. GASTROINTESTINAL: Denies abdominal pain, diarrhea, constipation, nausea or vomiting. MUSCULOSKELETAL: Denies myalgias. NEUROLOGIC: Denies numbness, tingling or weakness. ENDOCRINE: Denies fatigue, weight change, polydipsia or polyurina. GENITOURINARY: Denies burning, hematuria or urgency with micturation. HEMATOLOGIC: Denies history of anemia or bleeding. PHYSICAL EXAMINATION Blood pressure 159/85 heart rate 83 afebrile and maintaining oxygen saturation on room air. CONSTITUTIONAL: No apparent distress. HEENT: Head is normocephalic. Pupils are equal, round. Sclerae anicteric. Mucous membranes of the mouth are moist. No JVD. No carotid bruit. CHEST EXAMINATION: Lungs are clear to auscultation. No chest wall tenderness is noted on palpation or with deep breathing. HEART EXAMINATION: Regular rate and rhythm. S1, S2 heard. No murmurs, gallops or rub. ABDOMEN: Soft, nontender. Positive bowel sounds. EXTREMITIES: 2+ peripheral pulses, no lower extremity edema and no calf tenderness. NEUROLOGIC EXAMINATION: Patient is awake, alert and oriented x3. ASSESSMENT Chest pain Hypertension Morbid obesity, BMI 66 PLAN An acute coronary event has been ruled out. Echocardiogram has been obtained and reviewed. Symptoms have atypical and typical features of angina. The ongoing chest discomfort for one month with no EKG changes and no troponin leak needs more towards musculoskeletal or GI etiology however the fact that his discomfort is exacerbated by exertion at times is more concerning. Discussed with the patient and his father in detail regarding stress testing versus cardiac catheterization. Perform dobutamine stress echocardiogram to assess for stress-induced cardiac ischemia. Thank you kindly for this consultation. Nurse Practitioner note has been reviewed, I agree with a documented findings and plan of care. Patient was seen and examined. Past Medical History Past Medical History: Hypertension History of Any Multi-Drug Resistant Organisms: None Reported Past Surgical History: No Surgical Hx Reported Past Psychological History: No Psychological Hx Reported Smoking Status: Never smoker Past Alcohol Use History: None Reported Past Drug Use History: None Reported Medications and Allergies Home Medications Medication Instructions Recorded Confirmed Type Lisinopril-Hctz 10-12.5 mg 1 tab PO DAILY 09/17/19 10/30/19 History [Zestoretic 10-12.5] Nitroglycerin Sl Tabs [Nitrostat] 0.4 mg SUBLINGUAL Q5M PRN 10/30/19 10/30/19 History Omeprazole 40 mg PO DAILY PRN 10/30/19 10/30/19 History Allergies Allergy/AdvReac Type Severity Reaction Status Date / Time Penicillins Allergy Unknown Verified 10/30/19 12:15 Childhood Physical Exam Vitals: Vital Signs Temp Pulse Pulse Pulse Resp BP BP 10/31/19 07:41 97.9 F 83 14 159/85 10/31/19 03:00 97.9 F 94 82 18 118/65 10/30/19 19:55 94 89 18 10/30/19 19:52 98.3 F 89 18 148/75 10/30/19 15:37 99.1 F 94 14 130/82 10/30/19 15:05 101 H 20 129/68 10/30/19 12:30 116 H 18 144/91 10/30/19 12:11 105 H 105 H 24 144/91 10/30/19 11:21 97.9 F 127 H 24 138/80 Pulse Ox 10/31/19 07:41 99 10/31/19 03:00 99 10/30/19 19:55 10/30/19 19:52 97 10/30/19 15:37 97 10/30/19 15:05 99 10/30/19 12:30 100 10/30/19 12:11 100 10/30/19 11:21 100 Intake and Output 10/30/19 10/31/19 10/31/19 22:59 06:59 14:59 Intake Total 81.492 Balance 81.492 Intake: Intake, IV Titration 81.492 Amount Heparin Sod,Pork in 0.45% 81.492 NaCl 25,000 unit In 0.45 % NaCl 1 250ml.bag @ 5.01 UNITS/KG/HR 9.999 mls/hr IV .Q24H [facility] Rx#: [id number] Other: Voiding Method Toilet Toilet Toilet # Voids 1 2 1 Weight 199.581 kg 199.58 kg Results 10/31/19 06:11 10/30/19 12:00 Cardiac Enzymes 10/30/19 10/30/19 10/30/19 Range/Units 12:00 12:00 15:02 AST 47 (17-59) U/L Troponin I <0.012 <0.012 (0.000-0.034) ng/mL 10/30/19 Range/Units 18:12 AST (17-59) U/L Troponin I <0.012 (0.000-0.034) ng/mL Coagulation 10/30/19 10/30/19 10/31/19 Range/Units 12:00 21:16 06:11 PT 9.6 (9.0-12.0) sec APTT 23.4 24.4 29.8 (22.0-30.0) sec Lipids 10/31/19 Range/Units 06:11 Triglycerides 215 H (<150) mg/dL Cholesterol 194 (<200) mg/dL HDL Cholesterol 39 L (40-60) mg/dL CBC 10/30/19 10/31/19 Range/Units 12:00 06:11 WBC 11.9 H 8.5 (3.8-10.6) k/uL RBC 5.56 5.19 (4.30-5.90) m/uL Hgb 15.2 14.1 (13.0-17.5) gm/dL Hct 47.1 44.7 (39.0-53.0) % Plt Count 328 280 (150-450) k/uL Comprehensive Metabolic Panel 10/30/19 Range/Units 12:00 Sodium 136 L (137-145) mmol/L Potassium 4.5 (3.5-5.1) mmol/L Chloride 101 (98-107) mmol/L Carbon Dioxide 24 (22-30) mmol/L BUN 17 (9-20) mg/dL Creatinine 0.88 (0.66-1.25) mg/dL Glucose 99 (74-99) mg/dL Calcium 9.5 (8.4-10.2) mg/dL AST 47 (17-59) U/L ALT 45 (4-49) U/L Alkaline Phosphatase 51 (38-126) U/L Total Protein 7.5 (6.3-8.2) g/dL Albumin 4.5 (3.5-5.0) g/dL Current Medications Generic Name Dose Route Start Last Admin Trade Name Freq PRN Reason Stop Dose Admin Aspirin 325 mg 10/31/19 09:00 Aspirin 325 Mg Tab PO DAILY [facility] Lisinopril/HCTZ 1 each 10/31/19 11:00 Lisinopril-Hctz 10-12.5 Mg 1 Each Tab PO DAILY [facility] Heparin Sodium (Porcine) 0 unit 10/30/19 13:30 10/30/19 23:13 Heparin Sodium,Porcine 5,000 Unit/Ml 1 Ml Vial IV 4,000 unit PER PROTOCOL PRN Administration Low PTT Protocol Dobutamine HCl/Dextrose 500 mg 250 mls @ 59.874 mls/hr 10/31/19 09:27 / IV Solution IV 10/31/19 13:37 .Q4H11M ONE Protocol 10 MCG/KG/MIN Nitroglycerin 0.4 mg 10/30/19 13:57 Nitroglycerin Sl Tabs 0.4 Mg Tab SUBLINGUAL Q5M PRN Chest Pain Nitroglycerin 0.4 mg 10/31/19 10:47 Nitroglycerin Sl Tabs 0.4 Mg Tab SUBLINGUAL Q5M PRN Chest Pain Intake and Output 10/30/19 10/31/19 10/31/19 22:59 06:59 14:59 Intake Total 81.492 Balance 81.492 Intake: Intake, IV Titration 81.492 Amount Heparin Sod,Pork in 0.45% 81.492 NaCl 25,000 unit In 0.45 % NaCl 1 250ml.bag @ 5.01 UNITS/KG/HR 9.999 mls/hr IV .Q24H [facility] Rx#: [id number] Other: Voiding Method Toilet Toilet Toilet # Voids 1 2 1 Weight 199.581 kg 199.58 kg Patient Weight 11/01/19 06:59 Weight 199.58 kg 10/31/19 06:11 10/30/19 12:00
--- NOTE | 2019-10-31 11:30 | P.STRESS ---
- Stress Test Note Stress Test Results/Findings: Exam Performed: dobutamine stress echo with con Exam Date: 10/31/19 Reason for Exam: CHEST PAIN Height: 5 ft 8 in Weight: 199.58 kg Protocol: DSE Stage: 3 Duration of Exercise: 8:30 Resting Heart Rate: 86 Resting Blood Pressure: 124/80 Maximum Achieved Heart Rate: 162 Maximum Achieved Blood Pressure: 210/71 85% PMHR: 160 100% PMHR: 188 METS: NA Technologist Comment: Stress Test Results/Findings: This is a 34-year-old gentleman was admitted to the hospital with recurrent chest pain. Has history of hypertension but no diabetes or smoking. Stress data: Baseline EKG showed sinus rhythm with normal OH interval and QRS duration. Blood pressure at rest was 124/80. Pulse rate of 86. A standard dose of dobutamine was initiated and was titrated to a maximum of 30 mics, achieving a maximum heart rate of 162 with a blood pressure 191/54. EKGs taken during and after the dobutamine infusion did not reveal any significant changes to suggest ischemia. Echo data: Baseline echo images show normal wall motion and thickening. Images taken at a low dose and high dose dobutamine showed progressive augmentation of wall motion and thickening in all the segments. Final impression: #1. Negative dobutamine stress test #2. Negative dobutamine stress echo.
--- NOTE | 2019-10-31 13:18 | ECHOS ---
Stress Test Results/Findings: Exam Performed: dobutamine stress echo with con Exam Date: 10/31/19 Reason for Exam: CHEST PAIN Height: 5 ft 8 in Weight: 199.58 kg Protocol: DSE Stage: 3 Duration of Exercise: 8:30 Resting Heart Rate: 86 Resting Blood Pressure: 124/80 Maximum Achieved Heart Rate: 162 Maximum Achieved Blood Pressure: 210/71 85% PMHR: 160 100% PMHR: 188 METS: NA Technologist Comment: Stress Test Results/Findings: This is a 34-year-old gentleman was admitted to the hospital with recurrent chest pain. Has history of hypertension but no diabetes or smoking. Stress data: Baseline EKG showed sinus rhythm with normal VA interval and QRS duration. Blood pressure at rest was 124/80. Pulse rate of 86. A standard dose of dobutamine was initiated and was titrated to a maximum of 30 mics, achieving a maximum heart rate of 162 with a blood pressure 191/54. EKGs taken during and after the dobutamine infusion did not reveal any significant changes to suggest ischemia. Echo data: Baseline echo images show normal wall motion and thickening. Images taken at a low dose and high dose dobutamine showed progressive augmentation of wall motion and thickening in all the segments. Final impression: #1. Negative dobutamine stress test #2. Negative dobutamine stress echo. [facility]
--- NOTE | 2019-10-31 15:00 | P.DS ---
Providers Date of admission: 10/30/19 13:46 Attending physician: Eric Lopez Consults: 10/30/19 13:57 Consult Physician Urgent Consulting Provider: Gilmar Gresham Consult Reason/Comments: chset pain Do you want consulting provider notified?: Yes Primary care physician: Willow Parada [facility] Course: 34-year-old male came in with complaints of substernal chest pain has been going on for the about 2 months in the retrosternal area. He feels like something is stuck in there although patient doesn't have pain is on and off and lately has it severe patient patient was seen in the few weeks ago in the ER and was sent home at that time. Patient had a normal EKG. Patient has questionable history of diaphoresis associated chest pain patient denied any radiation during this episode of chest pain and had radiation to left hand during his previous visits to ER. Denied any shortness of breath the patient pain radiates around the chest on the left side into back of the shoulders patient chest pain is not precipitated by food. Patient pain used to be minutes now lasted about one hour nonpruritic in nature. Patient had a sleep study in the past. Patient was also complaining of near syncopal episodes although never had any syncope 10/31/2019 We ruled out acute current syndromes patient underwent stress test that was negative and patient is being discharged patient chest pain appears to be musculoskeletal. PHYSICAL EXAMINATION: GENERAL: The patient is alert and oriented x3, not in any acute distress. Well developed, well nourished. HEENT: Pupils are round and equally reacting to light. EOMI. No scleral icterus. No conjunctival pallor. Normocephalic, atraumatic. No pharyngeal erythema. No thyromegaly. CARDIOVASCULAR: S1 and S2 present. No murmurs, rubs, or gallops. PULMONARY: Chest is clear to auscultation, no wheezing or crackles. ABDOMEN: Soft, nontender, nondistended, normoactive bowel sounds. No palpable organomegaly. MUSCULOSKELETAL: No joint swelling or deformity. EXTREMITIES: No cyanosis, clubbing, or pedal edema. NEUROLOGICAL: Gross neurological examination did not reveal any focal deficits. SKIN: No rashes. The rest of the medical problems and hospital physician course please refer to my H&P for further details Patient Condition at Discharge: Serious Plan - Discharge Summary Discharge Rx Participant: No New Discharge Prescriptions: Continue Lisinopril-Hctz 10-12.5 mg [Zestoretic 10-12.5] 1 tab PO DAILY Nitroglycerin Sl Tabs [Nitrostat] 0.4 mg SUBLINGUAL Q5M PRN PRN Reason: Chest Pain Omeprazole 40 mg PO DAILY PRN PRN Reason: gerd Discharge Medication List Lisinopril-Hctz 10-12.5 mg [Zestoretic 10-12.5] 1 tab PO DAILY 09/17/19 [History] Nitroglycerin Sl Tabs [Nitrostat] 0.4 mg SUBLINGUAL Q5M PRN 10/30/19 [History] Omeprazole 40 mg PO DAILY PRN 10/30/19 [History] Follow up Appointment(s)/Referral(s): Radha Daugherty MD [Primary Care Provider] - 3 Days Juan A Rajput MD [STAFF PHYSICIAN] - 2 Weeks Patient Instructions/Handouts: Chest Pain (GEN) Discharge Disposition: HOME SELF-CARE
== END 2019-10-31 14:46 | disposition home or self-care (01) ==
LOC: EC 11:18 → 3NCARDOBS 13:46
PROVIDERS: ADMIT Internal Medicine; ATTEND Internal Medicine
DX: R07.89 Other chest pain (principal); R06.02 Shortness of breath; R07.2 Precordial pain; R00.0 Tachycardia, unspecified; Z79.899 Other long term (current) drug therapy; Z88.0 Allergy status to penicillin; I10 Essential (primary) hypertension; R55 Syncope and collapse; E66.01 Morbid (severe) obesity due to excess calories; R00.2 Palpitations; Z68.44 Body mass index [BMI] 60.0-69.9, adult
CPT/HCPCS: 93005 ×2; 96366 ×2; 96376 ×2; 96361; 96365; 96375; 99285; 36415; 93306; 93351; 85379; 83880; 80061; 80053; 83735; 84484; 85025 ×2; 85610; 85730 ×2; 71275; G0378 ×2; J2060; J1250; J1644 ×2; Q9950 ×2; Q9967

== ENCOUNTER 2019-11-10 13:37 | Emergency (ER) | payer OTHER ==
[2019-11-10] MEDS ORDERED: SODIUM CHLORIDE 0.9% 1,000 ML IV STA (13:57)
--- NOTE | 2019-11-10 14:01 | ED ---
Chest Pain HPI - General Chief Complaint: Chest Pain Stated Complaint: Chest Pain Time Seen by Provider: 11/10/19 13:53 Source: patient, RN notes reviewed, old records reviewed Mode of arrival: wheelchair Limitations: no limitations - History of Present Illness Initial Comments: This is a 34-year-old male DF for evaluation chest pain persistent chest pain. Patient has had episodic chest pain tachycardia for a couple weeks now multiple evaluations with no significant cause found. Patient has no significant nausea vomiting or shortness of breath although does get short of breath when he is doing any activity. Patient denies any history of medical illnesses, takes no medications no travel history or sick contacts MD Complaint: chest pain, other (Tachycardia and shortness of breath) -: month(s) Onset: during rest, during exertion Pain Location: substernal, left chest Pain Radiation: none Severity: moderate Severity scale (1-10): 5 Quality: heaviness, sharp Consistency: intermittent Improves With: nothing Worsens With: exertion Anginal Symptoms: dyspnea, sense of impending doom Other Symptoms: palpitations Treatments Prior to Arrival: none - Related Data Home Medications Medication Instructions Recorded Confirmed Lisinopril-Hctz 10-12.5 mg 1 tab PO DAILY 09/17/19 11/10/19 [Zestoretic 10-12.5] Nitroglycerin Sl Tabs [Nitrostat] 0.4 mg SUBLINGUAL Q5M PRN 10/30/19 11/10/19 Omeprazole 40 mg PO DAILY 10/30/19 11/10/19 dilTIAZem HCL [Diltiazem HCl] 30 mg PO DAILY 11/10/19 11/10/19 Allergies Allergy/AdvReac Type Severity Reaction Status Date / Time Penicillins Allergy Unknown Verified 11/10/19 15:51 Childhood Review of Systems ROS Statement: Those systems with pertinent positive or pertinent negative responses have been documented in the HPI. ROS Other: All systems not noted in ROS Statement are negative. EKG Findings - EKG Comments: EKG Findings:: EKG is sinus tachycardia 135 IA 136 QRS 90 or 20 Past Medical History Past Medical History: Hypertension History of Any Multi-Drug Resistant Organisms: None Reported Past Surgical History: No Surgical Hx Reported Past Psychological History: No Psychological Hx Reported Smoking Status: Never smoker Past Alcohol Use History: None Reported Past Drug Use History: None Reported General Exam Limitations: no limitations General appearance: alert, in no apparent distress, anxious Head exam: Present: atraumatic, normocephalic, normal inspection Eye exam: Present: normal appearance, PERRL, EOMI. Absent: scleral icterus, conjunctival injection, periorbital swelling ENT exam: Present: normal exam, mucous membranes moist Neck exam: Present: normal inspection. Absent: tenderness, meningismus, lymphadenopathy Respiratory exam: Present: normal lung sounds bilaterally. Absent: respiratory distress, wheezes, rales, rhonchi, stridor Cardiovascular Exam: Present: normal rhythm, tachycardia, normal heart sounds. Absent: systolic murmur, diastolic murmur, rubs, gallop, clicks GI/Abdominal exam: Present: soft, normal bowel sounds. Absent: distended, tenderness, guarding, rebound, rigid Extremities exam: Present: normal inspection, full ROM, normal capillary refill. Absent: tenderness, pedal edema, joint swelling, calf tenderness Back exam: Present: normal inspection Neurological exam: Present: alert, oriented X3, CN II-XII intact Psychiatric exam: Present: normal affect, normal mood Skin exam: Present: warm, dry, intact, normal color. Absent: rash Course Vital Signs 11/10/19 11/10/19 11/10/19 13:43 14:30 15:00 Temperature 98.3 F Pulse Rate 143 H 123 H 114 H Respiratory 20 23 22 Rate Blood Pressure 158/89 129/71 139/91 O2 Sat by Pulse 97 98 98 Oximetry 11/10/19 11/10/19 15:15 15:30 Temperature 98.1 F Pulse Rate 108 H 101 H Respiratory 18 20 Rate Blood Pressure 140/79 140/79 O2 Sat by Pulse 99 96 Oximetry - Reevaluation(s) Reevaluation #1: Medical record is reviewed Patient remained significantly symptomatic but has improved here in the ER Patient informed of findings and results, questions answered Patient does not fill comfortable with discharge, will keep for cardiology Reevaluation #2: Studies CT of chest is negative for PE Chest Pain MDM - MDM 34 male to the ER with unspecified chest pain, patient is morbidly obese, he has had prior admissions for chest pain. Patient will be For cardiology to evaluate Disposition Clinical Impression: Chest pain, Tachycardia Disposition: Left Against Medical Advice Condition: Fair Instructions (If sedation given, give patient instructions): Chest Pain (ED) Is patient prescribed a controlled substance at d/c from ED?: No Referrals: Radha Daugherty MD [Primary Care Provider] - 1-2 days
[2019-11-10] MEDS ORDERED: METOPROLOL TARTRATE 5 MG/5 ML VIAL IVP STA (14:26)
[2019-11-10 14:38] LABS: Basophils # (A) 0.1 k/uL (0-0.2); Basophils % (A) 1 %; Eosinophils # (A) 0.5 k/uL (0-0.7); Eosinophils % (A) 4 %; HCT 46.2 % (39.0-53.0); HGB 14.9 gm/dL (13.0-17.5); Lymphocytes # (A) 4.3 k/uL (1.0-4.8); Lymphocytes % (A) 29 %; MCH 27.3 pg (25.0-35.0); MCHC 32.3 g/dL (31.0-37.0); MCV 84.3 fL (80.0-100.0); Mean Platelet Volume 7.3; Monocytes # (A) 0.7 k/uL (0-1.0); Monocytes % (A) 5 %; Neutrophils % (A) 61 %; Platelet Count 393 k/uL (150-450); RBC 5.48 m/uL (4.30-5.90); RDW 13.9 % (11.5-15.5); WBC 14.8 k/uL (3.8-10.6)
[2019-11-10 14:48] LABS: ALT 45 U/L (4-49); AST 38 U/L (17-59); African American GFR (CKD) >90 (>60 ml/min/1.73 sqM); Albumin 4.5 g/dL (3.5-5.0); Alkaline Phosphatase 62 U/L (38-126); Anion Gap 12 mmol/L; Blood Urea Nitrogen 12 mg/dL (9-20); Calcium 9.8 mg/dL (8.4-10.2); Carbon Dioxide 25 mmol/L (22-30); Chloride 101 mmol/L (98-107); Glucose 158 mg/dL (74-99); Magnesium 1.8 mg/dL (1.6-2.3); Non-African American GFR(CKD) >90 (>60 ml/min/1.73 sqM); Potassium 3.9 mmol/L (3.5-5.1); Sodium 138 mmol/L (137-145); Total Bilirubin 0.4 mg/dL (0.2-1.3); Total Protein 7.4 g/dL (6.3-8.2)
[2019-11-10 14:49] LABS: D-Dimer 0.23 mg/L FEU (<0.60); INR 0.9 (<1.2); Partial Thromboplastin Time 23.4 sec (22.0-30.0); Prothrombin Time 9.3 sec (9.0-12.0)
--- NOTE | 2019-11-10 14:51 | CT ---
EXAMINATION TYPE: CT angio chest DATE OF EXAM: 11/10/2019 COMPARISON: CT 10/30/2019 HISTORY: Shortness of breath and chest pain. CT DLP: 1049.1 mGycm Automated exposure control for dose reduction was used. CONTRAST: CTA scan of the thorax is performed with IV Contrast, patient injected with 100ml mL of Isovue 370, p ulmonary embolism protocol. MIP images are created and reviewed. 3D reconstructed images are create d on an independent workstation and reviewed. FINDINGS: Exam is somewhat limited technically. LUNGS: The lungs are grossly clear, there is no concerning parenchymal mass or nodule identified. T here is no pleural effusion or pneumothorax seen. The tracheobronchial tree is patent. AORTA: No additional significant abnormality is seen. MEDIASTINUM: There is satisfactory enhancement of the central pulmonary artery and its central branch es, there is no CT evidence for pulmonary embolism within the limitations of the exam, patient body h abitus. There are no greater than 1 cm hilar or mediastinal lymph nodes. No pericardial effusion i s seen. Pulmonary artery is dilated, correlate for possible pulmonary artery hypertension OTHER: Liver shows low attenuation likely due to hepatic steatosis. IMPRESSION: STABLE EXAM, PULMONARY EMBOLISM IS NOT EVIDENT. CORRELATE FOR POSSIBLE PULMONARY ARTERY HYPERTENSION.
[2019-11-10 15:16] VITALS: BP 140/79; TEMP 98.1
[2019-11-10] MEDS ORDERED: NITROGLYCERIN SL TABS 0.4 MG TAB SUBLINGUAL PRN (15:20)
[2019-11-10 16:20] VITALS: PULSE 101; RESP 20
[2019-11-10] MEDS ORDERED: METOPROLOL TARTRATE 25 MG TAB PO SCH (21:00)
== END 2019-11-10 16:21 | disposition left against medical advice (07) ==
LOC: EC 13:37 → 3NCARDOBS 15:20 → UNDOADMOB 15:20 → 3NCARDOBS 15:48 → EC 16:21
DX: R07.9 Chest pain, unspecified (principal); R00.0 Tachycardia, unspecified; E66.01 Morbid (severe) obesity due to excess calories; I10 Essential (primary) hypertension; Z79.899 Other long term (current) drug therapy; Z88.0 Allergy status to penicillin; Z53.29 Procedure and treatment not carried out because of patient's decision for other reasons
CPT/HCPCS: 36415; 93005; 85379; 83880; 80053; 84443; 83690; 83735; 84484; 85025; 85610; 85730; 71275; 99285; 96374; 96361; Q9967

== ENCOUNTER → 2019-12-22 | Outpatient (CLI) | payer OTHER ==
--- NOTE | 2019-12-22 09:38 | US ---
EXAMINATION TYPE: US gallbladder DATE OF EXAM: 12/22/2019 COMPARISON: NONE CLINICAL HISTORY: R07.89 Other chest pain. Chest pain Exam extremely limited due to large body habitu s. EXAM MEASUREMENTS: Liver Length: 20 cm Gallbladder Wall: .3 cm CBD: .7 cm Right Kidney: 10.6 x 4.8 x 4.7 cm Pancreas: Obscured by bowel gas Liver: limited Gallbladder: limited no stones seen. Evidence for sonographic Govea's sign: No CBD: limited Right Kidney: limited Pancreas suboptimally evaluated. Visualized liver heterogeneously hyperechoic. Evaluation for masses suboptimal due to to the heterogeneity. Gallbladder is seen without shadowing mobile gallstones. IMPRESSION: Suboptimal study. No acute findings are evident. Probable marked fatty infiltration of li ciara.
== END | disposition home or self-care (01) ==
LOC: RADUSWWP 08:33
PROVIDERS: ATTEND Internal Medicine Gastroenterology
DX: R07.89 Other chest pain (principal)
CPT/HCPCS: 76705

== ENCOUNTER → 2019-12-25 | Outpatient (CLI) | payer OTHER ==
[2019-12-25 15:35] LABS: HCT 45.7 % (39.0-53.0); HGB 14.8 gm/dL (13.0-17.5); MCH 28.5 pg (25.0-35.0); MCHC 32.3 g/dL (31.0-37.0); MCV 88.2 fL (80.0-100.0); Mean Platelet Volume 6.6; Platelet Count 368 k/uL (150-450); RBC 5.18 m/uL (4.30-5.90); RDW 13.5 % (11.5-15.5); WBC 12.4 k/uL (3.8-10.6)
[2019-12-26 00:41] LABS: Hemoglobin A1C 5.8 % (4.0-6.0)
[2019-12-26 01:28] LABS: African American GFR (CKD) 114.9 (60.0-200.0); Albumin 4.7 g/dL (3.80-4.90); Albumin/Globulin Ratio 1.88 (1.60-3.17); Anion Gap 11.5 mmol/L (4.00-12.00); Calcium 9.8 mg/dL (8.7-10.3); Carbon Dioxide 27.5 mmol/L (21.6-31.8); Globulin 2.5 g/dL (1.6-3.3); Non-African American GFR(CKD) 99.1 (60.0-200.0); Potassium 4.5 mmol/L (3.5-5.5); Total Bilirubin 0.7 mg/dL (0.2-1.2); Total Protein 7.2 g/dL (6.2-8.2)
[2019-12-26 01:37] LABS: T4, Free (Free Thyroxine) 1.2 ng/dL (0.80-1.80)
[2019-12-26 16:13] LABS: Hepatitis A Antibody IgM Non-Reactive (Non-Reactive); Hepatitis B Core IgM Non-Reactive (Non-Reactive); Hepatitis B Surface Antigen Non-Reactive (Non-Reactive); Hepatitis C IgG Antibody Non-Reactive (Non-Reactive)
== END | disposition home or self-care (01) ==
LOC: LABWHC1 13:54
PROVIDERS: ATTEND Internal Medicine
DX: I10 Essential (primary) hypertension (principal); I42.5 Other restrictive cardiomyopathy; R00.2 Palpitations; R73.9 Hyperglycemia, unspecified; R94.5 Abnormal results of liver function studies
CPT/HCPCS: 36415; 80053; 80074; 83036; 84439; 84443; 84481; 85027; 86376; 86800

== ENCOUNTER 2019-12-28 10:11 | Observation (INO) | payer OTHER ==
[2019-12-28] MEDS ORDERED: ASPIRIN 81 MG PO STA (10:27)
--- NOTE | 2019-12-28 10:33 | ED ---
Arrhythmia/Palpitations HPI - General Chief Complaint: Arrhythmia/Palpitations Stated Complaint: Sent by PCP - Fluctuating heart rate Time Seen by Provider: 12/28/19 10:16 Source: patient Mode of arrival: ambulatory Limitations: no limitations - History of Present Illness Initial Comments: 34yo presenting for cc of heart rate changes, chest discomfort. Patient states he has been struggling with chest discomfort and sensation that his heart is racing and changing rates for the past few months. States he has been here before for this complaint and evaluated by cardiology with stress testing. he states that the heart was "normal" under stress. Patient states that he has episodes that last from hours to days/weeks. He states that he was put on cardiz em to help with rate but doesnt kniow if he has diagnosis of atrial fibrillation, denies anticoagulation therapy. Pt was seen at PCP office today stating hw was experiencing the racing sensation and told the physician he has some mild chest discomfort and was sent to the ER for evaluation. Patient states it is a sensation that a glass is shattered in his chest. Denies fevers, denies current SOB. States SOB occurrs when his heart feels like it is racing at this time patien tstates that his heart doesnt feel like its racing much. - Related Data Home Medications Medication Instructions Recorded Confirmed Lisinopril-Hctz 10-12.5 mg 1 tab PO DAILY 09/17/19 12/28/19 [Zestoretic 10-12.5] Nitroglycerin Sl Tabs [Nitrostat] 0.4 mg SUBLINGUAL Q5M PRN 10/30/19 12/28/19 Omeprazole 40 mg PO DAILY 10/30/19 12/28/19 Aspirin EC [Ecotrin Low Dose] 81 mg PO DAILY 12/28/19 12/28/19 Diltiazem HCl [Cartia Xt] 180 mg PO DAILY 12/28/19 12/28/19 Allergies Allergy/AdvReac Type Severity Reaction Status Date / Time Penicillins Allergy Unknown Verified 12/28/19 12:04 Childhood Review of Systems ROS Statement: Those systems with pertinent positive or pertinent negative responses have been documented in the HPI. ROS Other: All systems not noted in ROS Statement are negative. Past Medical History Past Medical History: Hypertension History of Any Multi-Drug Resistant Organisms: None Reported Past Surgical History: No Surgical Hx Reported Past Psychological History: No Psychological Hx Reported Smoking Status: Never smoker Past Alcohol Use History: None Reported Past Drug Use History: None Reported General Exam - General Exam Comments Initial Comments: General: The patient is awake and alert, in no distress, obese Eye: +3 mm pupils are equal, round and reactive to light, extra-ocular movements are intact. No nystagmus. There is normal conjunctiva bilaterally. No signs of icterus. Ears, nose, mouth and throat: There are moist mucous membranes and no oral lesions. Neck: The neck is supple, there is no tenderness or JVD. Cardiovascular: There is a regular rate and rhythm. No murmur, rub or gallop is appreciated. Respiratory: Lungs are clear to auscultation, respirations are non-labored, breath sounds are equal. No wheezes, stridor, rales, or rhonchi. Gastrointestinal: Soft, non-distended, non-tender abdomen without masses or organomegaly noted. There is no rebound or guarding present. Musculoskeletal: Normal ROM, no tenderness. Strength 5/5. Sensation intact. Radial pulses equal bilaterally 2+. Neurological: A&O x 3. CN II-XII intact grossly, There are no obvious motor or sensory deficits. Coordination appears grossly intact. Speech is normal. Skin: Skin is warm and dry and no rashes or lesions are noted. No LE edema. Psychiatric: Cooperative, appropriate mood & affect, normal judgment. Limitations: no limitations Course Vital Signs 12/28/19 12/28/19 12/28/19 10:12 10:37 12:15 Temperature 98.0 F Pulse Rate 110 H 101 H 113 H Respiratory 18 18 18 Rate Blood Pressure 143/97 131/76 141/81 O2 Sat by Pulse 99 96 98 Oximetry 12/28/19 12:19 Temperature 98 F Pulse Rate Respiratory Rate Blood Pressure O2 Sat by Pulse Oximetry EKG Findings - EKG Comments: EKG Findings:: Ventricular rate 104 bpm, CO interval 174 ms, QRS duration 80 ms, QT/QTC 326/428 ms. Sinus tachycardia otherwise no acute process identified EKG personally interpreted and reviewed by attending provider Medical Decision Making - Medical Decision Making Labs not critical findings. CXR clear. EKG no acute change. Patient dimer (-). Patient has had these symptoms on and off x 4 months. Patient will be admitted given he has atypical chest pain with typical features (diaphoresis at times--but none currently). patient is agreeable to admission. Dr Caceres agreeable to care plan. - Lab Data Result diagrams: 12/28/19 10:37 12/28/19 10:37 Lab Results 12/28/19 12/28/19 12/28/19 Range/Units 10:37 10:37 10:37 WBC 12.2 H (3.8-10.6) k/uL RBC 5.29 (4.30-5.90) m/uL Hgb 15.0 (13.0-17.5) gm/dL Hct 46.3 (39.0-53.0) % MCV 87.5 (80.0-100.0) fL MCH 28.4 (25.0-35.0) pg MCHC 32.4 (31.0-37.0) g/dL RDW 13.6 (11.5-15.5) % Plt Count 344 (150-450) k/uL Neutrophils % 73 % Lymphocytes % 19 % Monocytes % 3 % Eosinophils % 3 % Basophils % 1 % Neutrophils # 8.9 H (1.3-7.7) k/uL Lymphocytes # 2.3 (1.0-4.8) k/uL Monocytes # 0.4 (0-1.0) k/uL Eosinophils # 0.4 (0-0.7) k/uL Basophils # 0.2 (0-0.2) k/uL PT 9.4 (9.0-12.0) sec INR 0.9 (<1.2) APTT 22.9 (22.0-30.0) sec D-Dimer 0.19 (<0.60) mg/L FEU Sodium 136 L (137-145) mmol/L Potassium 4.1 (3.5-5.1) mmol/L Chloride 101 (98-107) mmol/L Carbon Dioxide 27 (22-30) mmol/L Anion Gap 8 mmol/L BUN 18 (9-20) mg/dL Creatinine 0.94 (0.66-1.25) mg/dL Est GFR (CKD-EPI)AfAm >90 (>60 ml/min/1.73 sqM) Est GFR (CKD-EPI)NonAf >90 (>60 ml/min/1.73 sqM) Glucose 139 H (74-99) mg/dL Calcium 9.9 (8.4-10.2) mg/dL Magnesium 1.8 (1.6-2.3) mg/dL Total Bilirubin 0.6 (0.2-1.3) mg/dL AST 35 (17-59) U/L ALT 41 (4-49) U/L Alkaline Phosphatase 59 (38-126) U/L Troponin I (0.000-0.034) ng/mL NT-Pro-B Natriuret Pep pg/mL Total Protein 7.5 (6.3-8.2) g/dL Albumin 4.5 (3.5-5.0) g/dL Lipase 76 (23-300) U/L 12/28/19 12/28/19 Range/Units 10:37 10:37 WBC (3.8-10.6) k/uL RBC (4.30-5.90) m/uL Hgb (13.0-17.5) gm/dL Hct (39.0-53.0) % MCV (80.0-100.0) fL MCH (25.0-35.0) pg MCHC (31.0-37.0) g/dL RDW (11.5-15.5) % Plt Count (150-450) k/uL Neutrophils % % Lymphocytes % % Monocytes % % Eosinophils % % Basophils % % Neutrophils # (1.3-7.7) k/uL Lymphocytes # (1.0-4.8) k/uL Monocytes # (0-1.0) k/uL Eosinophils # (0-0.7) k/uL Basophils # (0-0.2) k/uL PT (9.0-12.0) sec INR (<1.2) APTT (22.0-30.0) sec D-Dimer (<0.60) mg/L FEU Sodium (137-145) mmol/L Potassium (3.5-5.1) mmol/L Chloride (98-107) mmol/L Carbon Dioxide (22-30) mmol/L Anion Gap mmol/L BUN (9-20) mg/dL Creatinine (0.66-1.25) mg/dL Est GFR (CKD-EPI)AfAm (>60 ml/min/1.73 sqM) Est GFR (CKD-EPI)NonAf (>60 ml/min/1.73 sqM) Glucose (74-99) mg/dL Calcium (8.4-10.2) mg/dL Magnesium (1.6-2.3) mg/dL Total Bilirubin (0.2-1.3) mg/dL AST (17-59) U/L ALT (4-49) U/L Alkaline Phosphatase (38-126) U/L Troponin I <0.012 (0.000-0.034) ng/mL NT-Pro-B Natriuret Pep 132 pg/mL Total Protein (6.3-8.2) g/dL Albumin (3.5-5.0) g/dL Lipase (23-300) U/L Disposition Clinical Impression: Chest discomfort, Heart palpitations Disposition: ADMITTED IP TO THIS HOSP Condition: Stable Is patient prescribed a controlled substance at d/c from ED?: No Time of Disposition: 11:57 Decision to Admit Reason: Admit from EC Decision Date: 12/28/19 Decision Time: 11:57
[2019-12-28 10:45] LABS: Basophils # (A) 0.2 k/uL (0-0.2); Basophils % (A) 1 %; Eosinophils # (A) 0.4 k/uL (0-0.7); Eosinophils % (A) 3 %; HCT 46.3 % (39.0-53.0); Lymphocytes # (A) 2.3 k/uL (1.0-4.8); Lymphocytes % (A) 19 %; MCH 28.4 pg (25.0-35.0); MCHC 32.4 g/dL (31.0-37.0); MCV 87.5 fL (80.0-100.0); Mean Platelet Volume 6.7; Monocytes # (A) 0.4 k/uL (0-1.0); Monocytes % (A) 3 %; Neutrophils # (A) 8.9 k/uL (1.3-7.7); Neutrophils % (A) 73 %; Platelet Count 344 k/uL (150-450); RBC 5.29 m/uL (4.30-5.90); RDW 13.6 % (11.5-15.5); WBC 12.2 k/uL (3.8-10.6)
--- NOTE | 2019-12-28 10:54 | XR ---
EXAMINATION TYPE: XR chest 2V DATE OF EXAM: 12/28/2019 COMPARISON: October 05, 2019 HISTORY: Chest pain TECHNIQUE: Frontal and lateral views of the chest are obtained. FINDINGS: Patchy density right medial lung base may reflect developing infiltrate. Correlate clinically. No evidence for pneumothorax. No pleural effusion. The cardiac silhouette size is within normal limits. The osseous structures are grossly intact. IMPRESSION: 1. No acute cardiopulmonary process.
[2019-12-28 11:04] LABS: D-Dimer 0.19 mg/L FEU (<0.60); INR 0.9 (<1.2); Partial Thromboplastin Time 22.9 sec (22.0-30.0); Prothrombin Time 9.4 sec (9.0-12.0)
[2019-12-28 11:14] LABS: ALT 41 U/L (4-49); AST 35 U/L (17-59); African American GFR (CKD) >90 (>60 ml/min/1.73 sqM); Albumin 4.5 g/dL (3.5-5.0); Alkaline Phosphatase 59 U/L (38-126); Anion Gap 8 mmol/L; Blood Urea Nitrogen 18 mg/dL (9-20); Calcium 9.9 mg/dL (8.4-10.2); Carbon Dioxide 27 mmol/L (22-30); Chloride 101 mmol/L (98-107); Glucose 139 mg/dL (74-99); Lipase 76 U/L (23-300); Magnesium 1.8 mg/dL (1.6-2.3); Non-African American GFR(CKD) >90 (>60 ml/min/1.73 sqM); Potassium 4.1 mmol/L (3.5-5.1); Sodium 136 mmol/L (137-145); Total Bilirubin 0.6 mg/dL (0.2-1.3); Total Protein 7.5 g/dL (6.3-8.2)
[2019-12-28] MEDS ORDERED: NITROGLYCERIN SL TABS 0.4 MG TAB SUBLINGUAL PRN (11:47)
--- NOTE | 2019-12-28 18:33 | P.HPIM ---
History of Present Illness H&P Date: 12/28/19 Chief Complaint: Chest discomfort and palpitations Mr. Salinas is a 34-year-old morbidly obese male with past medical history of hypertension, tachycardia, in the hospital with a chief complaints of heart palpitations and chest discomfort. Patient states that he has been having chest discomfort running across his chest and with the sensation that his heart has been racing for the past couple of months. Patient states when he has this chest discomfort, he feels that his heart is racing and also start sweating. Patient also states that he feels that his upper extremities have a tingling sensation when he has this feeling. The patient was admitted in October of this year and was evaluated by cardiology for complaints of atypical chest pain. Patient had dobutamine stress test done that was negative and an echo cardiogram done showing an ejection fraction of 55-60%. Patient also mentions about having tachycardia, that he was started on [place] S1 and that has been helping him on and off. Patient was seen by his PCP in the office, due to complaints of racing heart and chest discomfort he was sent to the ER for further evaluation. In the ER at the time of admission patient had a temperature of 98, heart rate 110, blood pressure 140/97, saturating at 99% on room air. Patient had a chest x-ray that was negative for any acute cardiopulmonary process. EKG done showing sinus tachycardia with heart rate around [address] or T-wave changes. He had labs done showing white count of 12.2, hemoglobin 15, platelets 344. PT 9.4, INR 0.9. Sodium 136, potassium 4.1, BUN 18, creatinine 0.94. Troponins less than 0.0123. The patient is admitted for further evaluation with cardiology consultation. Review of Systems REVIEW OF SYSTEMS: CONSTITUTIONAL: No fever, no malaise, no fatigue. HEENT: No recent visual problems or hearing problems. Denied any sore throat. CARDIOVASCULAR: As per HPI PULMONARY: no cough, no hemoptysis. GASTROINTESTINAL: No diarrhea, no nausea, no vomiting, no abdominal pain. NEUROLOGICAL: No headaches, no weakness, no numbness. HEMATOLOGICAL: Denies any bleeding or petechiae. GENITOURINARY: Denies any burning micturition, frequency, or urgency. MUSCULOSKELETAL/RHEUMATOLOGICAL: Denies any joint pain, swelling, or any muscle pain. ENDOCRINE: Denies any polyuria or polydipsia. The rest of the 14-point review of systems is negative. Past Medical History Past Medical History: Hypertension Additional Past Medical History / Comment(s): tachycardia, SOB, obesity History of Any Multi-Drug Resistant Organisms: None Reported Past Surgical History: No Surgical Hx Reported Additional Past Anesthesia/Blood Transfusion Reaction / Comment(s): never had anesthesia Past Psychological History: No Psychological Hx Reported Smoking Status: Never smoker Past Alcohol Use History: None Reported Past Drug Use History: None Reported - Past Family History Father Additional Family Medical History / Comment(s): no known history/ states father healthy Mother History Unknown: Yes Family Medical History: Congestive Heart Failure (CHF), Diabetes Mellitus, Hypertension Medications and Allergies Home Medications Medication Instructions Recorded Confirmed Type Lisinopril-Hctz 10-12.5 mg 1 tab PO DAILY 09/17/19 12/28/19 History [Zestoretic 10-12.5] Nitroglycerin Sl Tabs [Nitrostat] 0.4 mg SUBLINGUAL Q5M PRN 10/30/19 12/28/19 History Omeprazole 40 mg PO DAILY 10/30/19 12/28/19 History Aspirin EC [Ecotrin Low Dose] 81 mg PO DAILY 12/28/19 12/28/19 History Diltiazem HCl [Cartia Xt] 180 mg PO DAILY 12/28/19 12/28/19 History Allergies Allergy/AdvReac Type Severity Reaction Status Date / Time Penicillins Allergy Unknown Verified 12/28/19 12:04 Childhood Physical Exam Vitals: Vital Signs Temp Pulse Pulse Resp BP BP Pulse Ox 12/28/19 15:00 77 18 139/85 96 12/28/19 12:37 106 H 18 148/86 97 12/28/19 12:19 98 F 12/28/19 12:15 113 H 18 141/81 98 12/28/19 10:37 101 H 18 131/76 96 12/28/19 10:12 98.0 F 110 H 18 143/97 99 Intake and Output 12/28/19 12/28/19 12/28/19 06:59 14:59 22:59 Other: Weight 204.117 kg PHYSICAL EXAMINATION: GENERAL: Morbidly obese with BMI of 68. The patient is alert and oriented x3, not in any acute distress. HEENT: Pupils are round and equally reacting to light. EOMI. No scleral icterus. No conjunctival pallor. Normocephalic, atraumatic. No pharyngeal erythema. No thyromegaly. CARDIOVASCULAR: S1 and S2 present. Tachycardia PULMONARY: Distant bilateral breath sounds heard. ABDOMEN: Soft, nontender, nondistended. Thick abdominal wall. MUSCULOSKELETAL: No joint swelling or deformity. EXTREMITIES: Mild edema. NEUROLOGICAL: Gross neurological examination did not reveal any focal deficits. SKIN: No rashes. Results CBC & Chem 7: 12/28/19 10:37 12/28/19 10:37 Labs: Abnormal Lab Results - Last 24 Hours (Table) 12/28/19 12/28/19 Range/Units 10:37 10:37 WBC 12.2 H (3.8-10.6) k/uL Neutrophils # 8.9 H (1.3-7.7) k/uL Sodium 136 L (137-145) mmol/L Glucose 139 H (74-99) mg/dL Thrombosis Risk Factor Assmnt - Choose All That Apply Any of the Below Risk Factors Present?: Yes Each Factor Represents 1 point: Obesity (BMI >25) Other Risk Factors: No Other congenital or acquired thrombophilia - If yes, enter type in comment: No Thrombosis Risk Factor Assessment Total Risk Factor Score: 1 Thrombosis Risk Factor Assessment Level: Low Risk Assessment and Plan Assessment: ASSESSMENT Palpitations and atypical chest pain Tachycardia Morbid obesity with BMI of 68 PLAN: Patient is admitted for serial troponins and EKGs. Troponins less than 0.0123. He recently had a stress dobutamine that was negative. Patient's d- dimer is 0.19. Will order TSH and a hemoglobin A1c and a lipid panel. Patient has been restarted on his home medications. Patient is admitted for observation. As the patient's palpitations occur 2 or 3 times a week, he might need Holter monitor or loop recorder. Cardiology has been consulted. Further recommendations depending on the progress of the patient.
[2019-12-28 20:07] VITALS: RESP 16
[2019-12-29 07:46] VITALS: BP 132/83; PULSE 80; TEMP 98.3
[2019-12-29] MEDS ORDERED: SODIUM CHLORIDE 0.9% 1,000 ML IV SCH (08:30)
[2019-12-29] MEDS ORDERED: PANTOPRAZOLE 40 MG TABLET PO SCH (09:00)
[2019-12-29] MEDS ORDERED: ASPIRIN 81 MG PO SCH (09:00)
[2019-12-29] MEDS ORDERED: ASPIRIN 325 MG TAB PO SCH (09:00)
[2019-12-29] MEDS ORDERED: LISINOPRIL-HCTZ 10-12.5 MG 1 EACH TAB PO SCH (09:00)
[2019-12-29] MEDS ORDERED: DILTIAZEM CD 180 MG CAP.ER.24H PO SCH (09:00)
--- NOTE | 2019-12-29 10:20 | P.CRDCN ---
History of Present Illness History of present illness: HISTORY OF PRESENTING ILLNESS This is a pleasant 34-year-old male past medical history significant for hypertension and morbid obesity. He follows in the office with Dr. Bradford. We have been asked to see in consultation for chest pain. He states he is experiencing intermittent episodes of palpitations, chest pain, sweaty feeling and dizziness. He states this happens with no specific aggravating factors. He feels a full sensation building in his chest and then his heart starts racing fast and his arms feel heavy, chest feels tight and he feels like he is going to pass out. He has a pulse oximeter and is records his heart rate at 160 at times. He is able to take some deep breaths and the palpitations improve. His PCP started him on cartia recently and it seems to help somewhat but he is still having episodes although less frequent. He had a similar episode in October and came to the hospital. At that time he underwent an echo and dobutamine stress echo both were reported as normal with EF 55-60%. DIAGNOSTICS EKG reveals tachycardia heart rate of 104. Telemetry tracings are negative for an acute arrhythmia Chest xray negative for an acute cardiopulmonary process. Laboratory reviewed, CBC 12.2, hemoglobin 15, platelets 344, d-dimer 0.19, sodium 136, potassium 4.1, creatinine 0.94, magnesium 1.8, cardiac enzymes negative 3, NT proBNP 132, LDL cholesterol 147, HDL 40 and TSH 2.94. Current cardiac medications include aspirin 81 mg daily, diltiazem 180 mg daily and lisinopril/hydrochlorothiazide 10/12.5 mg daily. REVIEW OF SYSTEMS At the time of my exam: CONSTITUTIONAL: Denies fever or chills. CARDIOVASCULAR: Denies chest pain, shortness of breath, orthopnea, PND or palpitations. RESPIRATORY: Denies cough. GASTROINTESTINAL: Denies abdominal pain, diarrhea, constipation, nausea or vomiting. MUSCULOSKELETAL: Denies myalgias. NEUROLOGIC: Denies numbness, tingling or weakness. ENDOCRINE: Denies fatigue, weight change, polydipsia or polyurina. GENITOURINARY: Denies burning, hematuria or urgency with micturation. HEMATOLOGIC: Denies history of anemia or bleeding. PHYSICAL EXAMINATION Blood pressure 132/83 heart rate 80 afebrile and maintaining oxygen saturation on room air. CONSTITUTIONAL: No apparent distress. Morbidly obese. HEENT: Head is normocephalic. Pupils are equal, round. Sclerae anicteric. Mucous membranes of the mouth are moist. No JVD. No carotid bruit. CHEST EXAMINATION: Lungs are clear to auscultation. No chest wall tenderness is noted on palpation or with deep breathing. HEART EXAMINATION: Regular rate and rhythm. S1, S2 heard. No murmurs, gallops or rub. ABDOMEN: Soft, nontender. Positive bowel sounds. EXTREMITIES: 2+ peripheral pulses, no lower extremity edema and no calf tenderness. NEUROLOGIC EXAMINATION: Patient is awake, alert and oriented x3. ASSESSMENT Chest pain and palpitations, and acute coronary event has been ruled out Hypertension Morbid obesity, BMI 68 PLAN An acute coronary event has been ruled out. Symptoms are atypical to be related to angina and recent normal stress test performed October 2019. Symptoms sound to be related to some sort of an arrhythmia whether it sinus tachycardia or an atrial arrhythmia is unknown at this time. There seems to be no sign of infection despite a mildly elevated white blood cell count. He denies any causes for dehydration. We recommend outpatient event monitoring to assess for type of arrhythmia. We have recommended that he hold his diltiazem at this time. Further recommendations will be made on an outpatient basis pending event monitor recordings. Discussed with the patient a sleep study for possible sleep apnea. Follow-up in the office with Dr. Bradford in 4-6 weeks after event monitoring. Stable for discharge from a cardiac perspective. Thank you kindly for this consultation. Nurse Practitioner note has been reviewed, I agree with a documented findings and plan of care. Patient was seen and examined. Past Medical History Past Medical History: Hypertension Additional Past Medical History / Comment(s): tachycardia, SOB, obesity History of Any Multi-Drug Resistant Organisms: None Reported Past Surgical History: No Surgical Hx Reported Additional Past Anesthesia/Blood Transfusion Reaction / Comment(s): never had anesthesia Past Psychological History: No Psychological Hx Reported Smoking Status: Never smoker Past Alcohol Use History: None Reported Past Drug Use History: None Reported - Past Family History Father Additional Family Medical History / Comment(s): no known history/ states father healthy Mother History Unknown: Yes Family Medical History: Congestive Heart Failure (CHF), Diabetes Mellitus, Hypertension Medications and Allergies Home Medications Medication Instructions Recorded Confirmed Type Lisinopril-Hctz 10-12.5 mg 1 tab PO DAILY 09/17/19 12/28/19 History [Zestoretic 10-12.5] Nitroglycerin Sl Tabs [Nitrostat] 0.4 mg SUBLINGUAL Q5M PRN 10/30/19 12/28/19 History Omeprazole 40 mg PO DAILY 10/30/19 12/28/19 History Aspirin EC [Ecotrin Low Dose] 81 mg PO DAILY 12/28/19 12/28/19 History Diltiazem HCl [Cartia Xt] 180 mg PO DAILY 12/28/19 12/28/19 History Allergies Allergy/AdvReac Type Severity Reaction Status Date / Time Penicillins Allergy Unknown Verified 12/28/19 12:04 Childhood Physical Exam Vitals: Vital Signs Temp Pulse Pulse Resp BP BP Pulse Ox 12/29/19 07:43 98.3 F 80 16 132/83 97 12/29/19 02:41 98.0 F 71 16 142/84 96 12/28/19 20:07 97.5 F L 90 16 149/89 98 12/28/19 15:00 77 18 139/85 96 12/28/19 12:37 106 H 18 148/86 97 12/28/19 12:19 98 F 12/28/19 12:15 113 H 18 141/81 98 12/28/19 10:37 101 H 18 131/76 96 12/28/19 10:12 98.0 F 110 H 18 143/97 99 Intake and Output 12/28/19 12/29/19 12/29/19 22:59 06:59 14:59 Other: # Voids 1 1 Results 12/28/19 10:37 12/28/19 10:37 Cardiac Enzymes 12/28/19 12/28/19 12/28/19 Range/Units 10:37 10:37 13:47 AST 35 (17-59) U/L Troponin I <0.012 <0.012 (0.000-0.034) ng/mL 12/28/19 Range/Units 16:43 AST (17-59) U/L Troponin I <0.012 (0.000-0.034) ng/mL Coagulation 12/28/19 Range/Units 10:37 PT 9.4 (9.0-12.0) sec APTT 22.9 (22.0-30.0) sec Lipids 12/29/19 Range/Units 07:15 Triglycerides 143 (<150) mg/dL Cholesterol 216 H (<200) mg/dL HDL Cholesterol 40 (40-60) mg/dL CBC 12/28/19 Range/Units 10:37 WBC 12.2 H (3.8-10.6) k/uL RBC 5.29 (4.30-5.90) m/uL Hgb 15.0 (13.0-17.5) gm/dL Hct 46.3 (39.0-53.0) % Plt Count 344 (150-450) k/uL Comprehensive Metabolic Panel 12/28/19 Range/Units 10:37 Sodium 136 L (137-145) mmol/L Potassium 4.1 (3.5-5.1) mmol/L Chloride 101 (98-107) mmol/L Carbon Dioxide 27 (22-30) mmol/L BUN 18 (9-20) mg/dL Creatinine 0.94 (0.66-1.25) mg/dL Glucose 139 H (74-99) mg/dL Calcium 9.9 (8.4-10.2) mg/dL AST 35 (17-59) U/L ALT 41 (4-49) U/L Alkaline Phosphatase 59 (38-126) U/L Total Protein 7.5 (6.3-8.2) g/dL Albumin 4.5 (3.5-5.0) g/dL Current Medications Generic Name Dose Route Start Last Admin Trade Name Freq PRN Reason Stop Dose Admin Aspirin 81 mg 12/29/19 09:00 12/29/19 08:25 Aspirin 81 Mg PO 81 mg DAILY KAYY Administration Lisinopril/HCTZ 1 each 12/29/19 09:00 12/29/19 08:25 Lisinopril-Hctz 10-12.5 Mg 1 Each Tab PO 1 each DAILY KAYY Administration Sodium Chloride 1,000 mls @ 20 mls/hr 12/29/19 08:30 12/29/19 08:27 Saline 0.9% IV 20 mls/hr .Q24H KAYY Administration Nitroglycerin 0.4 mg 12/28/19 11:47 Nitroglycerin Sl Tabs 0.4 Mg Tab SUBLINGUAL Q5M PRN Chest Pain Pantoprazole Sodium 40 mg 12/29/19 09:00 11/09/20 08:25 Pantoprazole 40 Mg Tablet PO 40 mg DAILY KAYY Administration Intake and Output 12/28/19 12/29/19 12/29/19 22:59 06:59 14:59 Other: # Voids 1 1 12/28/19 10:37 12/28/19 10:37
--- NOTE | 2019-12-29 13:01 | P.DS ---
Providers Date of admission: 12/28/19 11:58 Expected date of discharge: 12/29/19 Attending physician: Rd Pichardo Consults: 12/28/19 11:47 Consult Physician Urgent Consulting Provider: Juan A Rajput Consult Reason/Comments: chest discomfort/diaphoresis/palp Do you want consulting provider notified?: Yes, Notify in am Primary care physician: Willow Parada [facility] Course: Mr. Salinas is a 34-year-old morbidly obese male with past medical history of hypertension, tachycardia, in the hospital with a chief complaints of heart palpitations and chest discomfort. Patient states that he has been having chest discomfort running across his chest and with the sensation that his heart has been racing for the past couple of months. Patient states when he has this chest discomfort, he feels that his heart is racing and also start sweating. Patient also states that he feels that his upper extremities have a tingling sensation when he has this feeling. The patient was admitted in October of this year and was evaluated by cardiology for complaints of atypical chest pain. Patient had dobutamine stress test done that was negative and an echo cardiogram done showing an ejection fraction of 55-60%. Patient also mentions about having tachycardia, that he was started on [place] S1 and that has been helping him on and off. Patient was seen by his PCP in the office, due to complaints of racing heart and chest discomfort he was sent to the ER for further evaluation. In the ER at the time of admission patient had a temperature of 98, heart rate 110, blood pressure 140/97, saturating at 99% on room air. Patient had a chest x-ray that was negative for any acute cardiopulmonary process. EKG done showing sinus tachycardia with heart rate around [address] or T-wave changes. He had labs done showing white count of 12.2, hemoglobin 15, platelets 344. PT 9.4, INR 0.9. Sodium 136, potassium 4.1, BUN 18, creatinine 0.94. Troponins less than 0.0123. The patient is admitted for further evaluation with cardiology consultation. Hospital course - patient had 3 serial troponins that were below 0.012. He was evaluated by cardiology and they advised him to have outpatient event monitoring. He was cleared by cardiology for discharge. They recommended that the patient hold history he has at this time. Also discussed the option of adding a sleep study for possible underlying obstructive sleep apnea. The plan was discussed in detail with the patient. He is being discharged home to follow-up with cardiology for event monitor placement. Vital Signs - 8 hr 12/29/19 07:43 Temperature 98.3 F Pulse Rate [ 80 Pulse Oximetery ] Respiratory 16 Rate Blood Pressure 132/83 [Left Arm] O2 Sat by Pulse 97 Oximetry PHYSICAL EXAMINATION: GENERAL: Morbidly obese with BMI of 68. The patient is alert and oriented x3, not in any acute distress. HEENT: Pupils are round and equally reacting to light. EOMI. No scleral icterus. No conjunctival pallor. Normocephalic, atraumatic. No pharyngeal erythema. No thyromegaly. CARDIOVASCULAR: S1 and S2 present. Tachycardia PULMONARY: Distant bilateral breath sounds heard. ABDOMEN: Soft, nontender, nondistended. Thick abdominal wall. MUSCULOSKELETAL: No joint swelling or deformity. EXTREMITIES: Mild edema. NEUROLOGICAL: Gross neurological examination did not reveal any focal deficits. SKIN: No rashes. DISCHARGE DIAGNOSIS Palpitations and atypical chest pain Tachycardia Leukocytosis - clinically no signs of infection Morbid obesity with BMI of 68 Follow-up: Patient is advised to follow-up with Dr. Cervantes possible his primary care physician and cardiology Dr. JULITO Bradford. Patient Condition at Discharge: Stable Plan - Discharge Summary Discharge Rx Participant: No New Discharge Prescriptions: Continue Lisinopril-Hctz 10-12.5 mg [Zestoretic 10-12.5] 1 tab PO DAILY Nitroglycerin Sl Tabs [Nitrostat] 0.4 mg SUBLINGUAL Q5M PRN PRN Reason: Chest Pain Omeprazole 40 mg PO DAILY Aspirin EC [Ecotrin Low Dose] 81 mg PO DAILY Discontinued Diltiazem HCl [Cartia Xt] 180 mg PO DAILY Discharge Medication List Lisinopril-Hctz 10-12.5 mg [Zestoretic 10-12.5] 1 tab PO DAILY 09/17/19 [History] Nitroglycerin Sl Tabs [Nitrostat] 0.4 mg SUBLINGUAL Q5M PRN 10/30/19 [History] Omeprazole 40 mg PO DAILY 10/30/19 [History] Aspirin EC [Ecotrin Low Dose] 81 mg PO DAILY 12/28/19 [History] Follow up Appointment(s)/Referral(s): Pernell Bradford MD [STAFF PHYSICIAN] - 01/30/20 1:30 pm (Event monitor from the office for 30 days.230 12/29 ) Radha Daugherty MD [Primary Care Provider] - 01/06/20 2:20 pm Patient Instructions/Handouts: Heart Palpitations (DC) Discharge Disposition: HOME SELF-CARE
[2019-12-29 14:59] LABS: Hemoglobin A1C 5.8 % (4.0-6.0)
== END 2019-12-29 13:07 | disposition home or self-care (01) ==
LOC: EC 10:11 → 3NCARDOBS 11:58
PROVIDERS: ADMIT Hospitalist; ATTEND Hospitalist
DX: R07.89 Other chest pain (principal); R00.2 Palpitations; R00.0 Tachycardia, unspecified; R61 Generalized hyperhidrosis; R20.2 Paresthesia of skin; R42 Dizziness and giddiness; D72.829 Elevated white blood cell count, unspecified; R06.02 Shortness of breath; I10 Essential (primary) hypertension; E66.01 Morbid (severe) obesity due to excess calories; Z68.44 Body mass index [BMI] 60.0-69.9, adult; Z79.82 Long term (current) use of aspirin; Z79.899 Other long term (current) drug therapy; Z88.0 Allergy status to penicillin; Z82.49 Family history of ischemic heart disease and other diseases of the circulatory system; Z83.3 Family history of diabetes mellitus
CPT/HCPCS: 93005 ×2; 99285; 36415; 85379; 83880; 80061; 80053; 84443; 83690; 83735; 84484; 85025; 85610; 85730; 83036; 71046; G0378 ×2

== ENCOUNTER 2020-04-30 10:33 | Emergency (ER) | payer OTHER ==
--- NOTE | 2020-04-30 11:11 | ED ---
General Adult HPI - General Chief complaint: Shortness of Breath Stated complaint: Covid+/sob/chest pain Time Seen by Provider: 04/30/20 10:39 Source: patient Mode of arrival: ambulatory Limitations: no limitations - History of Present Illness Initial comments: 34-year-old male presents to the emergency room for a chief complaint of leg pain. Patient reports that he was tested for Covid 3 days ago and was found to be positive. Patient reports his symptoms of cough, loss of taste and smell started 3 days ago as well. Patient states he came here today because he called his doctor as he is having bilateral calf pain and they told him to come to the emergency room to get ultrasounds for DVT. Patient reports that he feels like he can't get a deep breath but does not necessarily feel short of breath. Sates his fevers have resolved but did have them at first.Patient has no other complaints at this time including chest pain, abdominal pain, nausea or vomiting, headache, or visual changes. - Related Data Home Medications Medication Instructions Recorded Confirmed Lisinopril-Hctz 10-12.5 mg 1 tab PO DAILY 09/17/19 04/30/20 [Zestoretic 10-12.5] Nitroglycerin Sl Tabs [Nitrostat] 0.4 mg SUBLINGUAL Q5M PRN 10/30/19 04/30/20 Omeprazole 40 mg PO HS 10/30/19 04/30/20 Aspirin EC [Ecotrin Low Dose] 81 mg PO DAILY 12/28/19 04/30/20 Diltiazem Cd [Cardizem Cd] 300 mg PO DAILY 04/30/20 04/30/20 Doxycycline Monohydrate [Monodox] 100 mg PO DAILY 04/30/20 04/30/20 Previous Rx's Medication Instructions Recorded Albuterol Inhaler [Ventolin Hfa 2 puff INHALATION RT-QID PRN #1 04/30/20 Inhaler] inhaler Benzonatate [Tessalon Perles] 200 mg PO Q8H PRN #15 capsule 04/30/20 Dexamethasone [Decadron] 6 mg PO DAILY 6 Days #6 tablet 04/30/20 Allergies Allergy/AdvReac Type Severity Reaction Status Date / Time Penicillins Allergy Unknown Verified 04/30/20 11:20 Childhood Review of Systems ROS Statement: Those systems with pertinent positive or pertinent negative responses have been documented in the HPI. ROS Other: All systems not noted in ROS Statement are negative. Past Medical History Past Medical History: Hypertension Additional Past Medical History / Comment(s): tachycardia, SOB, obesity History of Any Multi-Drug Resistant Organisms: None Reported Past Surgical History: No Surgical Hx Reported Additional Past Anesthesia/Blood Transfusion Reaction / Comment(s): never had anesthesia Past Psychological History: No Psychological Hx Reported Smoking Status: Never smoker Past Alcohol Use History: None Reported Past Drug Use History: None Reported - Past Family History Father Additional Family Medical History / Comment(s): no known history/ states father healthy Mother History Unknown: Yes Family Medical History: Congestive Heart Failure (CHF), Diabetes Mellitus, Hypertension General Exam - General Exam Comments Initial Comments: Right lower extremity: Capillary refill less than 2 seconds, tenderness found to be sparsely located over the lower extremity. I do not see any petechiae or ecchymosis. No rash. No erythema or increased warmth noted of the right leg. Left lower extremity: capillary refill less than 2 seconds, tenderness found to be sparsely located over the lower extremity. I do not see any petechiae or ecchymosis. No rash. No erythema or increased warmth noted of the left leg. Limitations: no limitations General appearance: alert, in no apparent distress Head exam: Present: atraumatic, normocephalic, normal inspection Eye exam: Present: normal appearance, PERRL, EOMI. Absent: scleral icterus, conjunctival injection, periorbital swelling ENT exam: Present: normal exam, mucous membranes moist Neck exam: Present: normal inspection, full ROM. Absent: tenderness, meningismus, lymphadenopathy Respiratory exam: Present: normal lung sounds bilaterally. Absent: respiratory distress, wheezes, rales, rhonchi, stridor Cardiovascular Exam: Present: regular rate, normal rhythm, normal heart sounds. Absent: systolic murmur, diastolic murmur, rubs, gallop, clicks GI/Abdominal exam: Present: soft, normal bowel sounds. Absent: distended, tenderness, guarding, rebound, rigid Back exam: Absent: CVA tenderness (R), CVA tenderness (L) Neurological exam: Present: alert Course Vital Signs 04/30/20 04/30/20 04/30/20 10:35 13:16 14:20 Temperature 98.2 F Pulse Rate 92 90 84 Respiratory 20 20 20 Rate Blood Pressure 95/60 118/67 121/63 O2 Sat by Pulse 96 96 98 Oximetry Medical Decision Making - Medical Decision Making Vitals are stable. Patient is well-appearing. Ultrasound was performed of bilateral lower extremities which was limited however no evidence for DVT. Chest x-ray was obtained which did fever of fluid overload state as there is alveolar edema suggested. Correlate clinically. Multifocal areas of acute infiltrate cannot be excluded. Given history of positive Covid test a few days ago this is more likely related to multifocal pneumonia. However Covid workup was initiated. CBC unremarkable. CMP does show slight hyponatremia, patient directed to increase salt intake. CT chest angiogram showed a suboptimal study however no central pulmonary embolism. Low lung volumes with new multifocal groundglass opacities consistent with Covid 19 infection. Patient did have an ambulatory O2 of 94%. His oxygenation is maintained in the high 90s at rest. Patient prefers to go home. I did recommend antibodies however patient does not wish to do this and refuses them at this time. He was given the patient and family information packet. I did discuss strict return parameters with patient. He has a pulse oximeter at home and will keep checking his oxygen status. He will return for any worsening symptoms. I did obtain a positive Covid result from patient's visit with [facility]. - Lab Data Result diagrams: 04/30/20 12:40 04/30/20 12:40 Lab Results 04/30/20 04/30/20 04/30/20 Range/Units 12:40 12:40 12:40 WBC 7.0 (3.8-10.6) k/uL RBC 5.35 (4.30-5.90) m/uL Hgb 15.0 (13.0-17.5) gm/dL Hct 44.4 (39.0-53.0) % MCV 83.0 (80.0-100.0) fL MCH 28.1 (25.0-35.0) pg MCHC 33.9 (31.0-37.0) g/dL RDW 13.9 (11.5-15.5) % Plt Count 224 (150-450) k/uL MPV 7.1 Neutrophils % 76 % Lymphocytes % 19 % Monocytes % 3 % Eosinophils % 1 % Basophils % 0 % Neutrophils # 5.3 (1.3-7.7) k/uL Lymphocytes # 1.3 (1.0-4.8) k/uL Monocytes # 0.2 (0-1.0) k/uL Eosinophils # 0.0 (0-0.7) k/uL Basophils # 0.0 (0-0.2) k/uL PT 10.2 (9.0-12.0) sec INR 0.9 (<1.2) APTT 23.8 (22.0-30.0) sec D-Dimer 0.36 (<0.60) mg/L FEU Sodium 130 L (137-145) mmol/L Potassium 4.5 (3.5-5.1) mmol/L Chloride 93 L (98-107) mmol/L Carbon Dioxide 26 (22-30) mmol/L Anion Gap 11 mmol/L BUN 20 (9-20) mg/dL Creatinine 1.14 (0.66-1.25) mg/dL Est GFR (CKD-EPI)AfAm >90 (>60 ml/min/1.73 sqM) Est GFR (CKD-EPI)NonAf 85 (>60 ml/min/1.73 sqM) Glucose 105 H (74-99) mg/dL Plasma Lactic Acid Deandre (0.7-2.0) mmol/L Calcium 9.1 (8.4-10.2) mg/dL Magnesium 2.0 (1.6-2.3) mg/dL Total Bilirubin 0.7 (0.2-1.3) mg/dL AST 92 H (17-59) U/L ALT 54 H (4-49) U/L Alkaline Phosphatase 48 (38-126) U/L Lactate Dehydrogenase 904 H (313-618) U/L C-Reactive Protein 47.1 H (<10.0) mg/L Total Protein 7.5 (6.3-8.2) g/dL Albumin 4.4 (3.5-5.0) g/dL 04/30/20 Range/Units 12:40 WBC (3.8-10.6) k/uL RBC (4.30-5.90) m/uL Hgb (13.0-17.5) gm/dL Hct (39.0-53.0) % MCV (80.0-100.0) fL MCH (25.0-35.0) pg MCHC (31.0-37.0) g/dL RDW (11.5-15.5) % Plt Count (150-450) k/uL MPV Neutrophils % % Lymphocytes % % Monocytes % % Eosinophils % % Basophils % % Neutrophils # (1.3-7.7) k/uL Lymphocytes # (1.0-4.8) k/uL Monocytes # (0-1.0) k/uL Eosinophils # (0-0.7) k/uL Basophils # (0-0.2) k/uL PT (9.0-12.0) sec INR (<1.2) APTT (22.0-30.0) sec D-Dimer (<0.60) mg/L FEU Sodium (137-145) mmol/L Potassium (3.5-5.1) mmol/L Chloride (98-107) mmol/L Carbon Dioxide (22-30) mmol/L Anion Gap mmol/L BUN (9-20) mg/dL Creatinine (0.66-1.25) mg/dL Est GFR (CKD-EPI)AfAm (>60 ml/min/1.73 sqM) Est GFR (CKD-EPI)NonAf (>60 ml/min/1.73 sqM) Glucose (74-99) mg/dL Plasma Lactic Acid Deandre 1.0 (0.7-2.0) mmol/L Calcium (8.4-10.2) mg/dL Magnesium (1.6-2.3) mg/dL Total Bilirubin (0.2-1.3) mg/dL AST (17-59) U/L ALT (4-49) U/L Alkaline Phosphatase (38-126) U/L Lactate Dehydrogenase (313-618) U/L C-Reactive Protein (<10.0) mg/L Total Protein (6.3-8.2) g/dL Albumin (3.5-5.0) g/dL Disposition Clinical Impression: COVID-19, Pneumonia due to COVID-19 virus Disposition: ADMITTED IP TO THIS [facility] Condition: Good Additional Instructions: Please take Z-Ruebn, vitamin C, and D3 [id number]. Take Tessalon Perles for cough. Use inhaler as needed. Take Decadron as directed. Follow-up with your doctor in one to 2 days. Return to the emergency room for any worsening symptoms. Prescriptions: Dexamethasone [Decadron] 6 mg PO DAILY 6 Days #6 tablet Benzonatate [Tessalon Perles] 200 mg PO Q8H PRN #15 capsule PRN Reason: Cough Albuterol Inhaler [Ventolin Hfa Inhaler] 2 puff INHALATION RT-QID PRN #1 inhaler PRN Reason: Shortness Of Breath Is patient prescribed a controlled substance at d/c from ED?: No Referrals: Radha Daugherty MD [Primary Care Provider] - 1-2 days Time of Disposition: 15:00
--- NOTE | 2020-04-30 11:20 | XR ---
EXAMINATION TYPE: XR chest 1V portable DATE OF EXAM: 04/30/2020 COMPARISON: Chest x-ray December 28, 2019. CTA chest November 10, 2019 HISTORY: Cough and congestion. TECHNIQUE: Single AP portable frontal view of the chest is obtained. FINDINGS: There is diminish inspiration and mild cardiomegaly. New perihilar opacities bilaterally. No new pleural effusion or pneumothorax. The osseous structures are intact. IMPRESSION: Favor fluid overload state or CHF exacerbation as there is new mild to moderate central alveolar edema suspected on background mild cardiomegaly. Correlate clinically. Multifocal areas of a cute infiltrate cannot be excluded.
--- NOTE | 2020-04-30 12:36 | US ---
EXAMINATION TYPE: US venous doppler duplex LE DATE OF EXAM: 04/30/2020 12:19 PM COMPARISON: NONE CLINICAL HISTORY: 34-year-old male rule out DVT. SOB, COVID + SIDE PERFORMED: Bilateral TECHNIQUE: The lower extremity deep venous system is examined utilizing real time linear array sonog isabel with graded compression, doppler sonography and color-flow sonography. FINDINGS: VESSELS IMAGED: Common Femoral Vein Deep Femoral Vein Greater Saphenous Vein * Femoral Vein Popliteal Vein Small Saphenous Vein * Proximal Calf Veins (* superficial vessels) Right Leg: Technical limitations due to patient's body habitus, 430 pounds. No evidence of DVT as visualized. Unable to image CFV, Deep fem vein due to body habitus. Unable to visualize lower femoral vein for compression Left Leg: Technical limitations due to patient's body habitus, 430 pounds. No evidence of DVT as v isualized. Unable to image CFV, Deep fem vein due to body habitus. Unable to visualize lower femoral vein for compression IMPRESSION: Limited assessment due to patient large body habitus. The common femoral vein, deep femoral vein, and lower aspect of the superficial femoral vein could not be adequately visualized. The remainder of th e femoral vein, popliteal vein, and upper calf veins show no evidence for DVT.
[2020-04-30 13:27] LABS: Basophils % (A) 0 %; Eosinophils % (A) 1 %; HCT 44.4 % (39.0-53.0); Lymphocytes # (A) 1.3 k/uL (1.0-4.8); Lymphocytes % (A) 19 %; MCH 28.1 pg (25.0-35.0); MCHC 33.9 g/dL (31.0-37.0); Mean Platelet Volume 7.1; Monocytes # (A) 0.2 k/uL (0-1.0); Monocytes % (A) 3 %; Neutrophils # (A) 5.3 k/uL (1.3-7.7); Neutrophils % (A) 76 %; Platelet Count 224 k/uL (150-450); RBC 5.35 m/uL (4.30-5.90); RDW 13.9 % (11.5-15.5)
[2020-04-30 13:35] LABS: ALT 54 U/L (4-49); AST 92 U/L (17-59); African American GFR (CKD) >90 (>60 ml/min/1.73 sqM); Albumin 4.4 g/dL (3.5-5.0); Alkaline Phosphatase 48 U/L (38-126); Anion Gap 11 mmol/L; Blood Urea Nitrogen 20 mg/dL (9-20); C Reactive Protein 47.1 mg/L (<10.0); Calcium 9.1 mg/dL (8.4-10.2); Carbon Dioxide 26 mmol/L (22-30); Chloride 93 mmol/L (98-107); D-Dimer 0.36 mg/L FEU (<0.60); Glucose 105 mg/dL (74-99); INR 0.9 (<1.2); LDH 904 U/L (313-618); Non-African American GFR(CKD) 85 (>60 ml/min/1.73 sqM); Partial Thromboplastin Time 23.8 sec (22.0-30.0); Potassium 4.5 mmol/L (3.5-5.1); Prothrombin Time 10.2 sec (9.0-12.0); Sodium 130 mmol/L (137-145); Total Bilirubin 0.7 mg/dL (0.2-1.3); Total Protein 7.5 g/dL (6.3-8.2)
--- NOTE | 2020-04-30 14:23 | CT ---
EXAMINATION TYPE: CT chest angio for PE DATE OF EXAM: 04/30/2020 COMPARISON: CTA chest October 30, 2019 HISTORY: Covid+, SOB, chest pain CT DLP: 1332 mGycm Automated exposure control for dose reduction was used. CONTRAST: CT Chest for pulmonary embolism performed with with IV Contrast, patient injected with 100 mL of Isov ue 370. FINDINGS: LUNGS: Exam noted suboptimal due to patient's large body habitus. Multifocal areas of groundglass opa city bilaterally seen on current study. No pleural effusion or pneumothorax is noted. Low lung volume s with elevated hemidiaphragms is redemonstrated. MEDIASTINUM: There is suboptimal bolus with most dense contrast in the SVC. There is heterogeneous p oor contrast opacification of the aorta and pulmonary arteries. No large saddle central pulmonary emb olism. Cannot exclude smaller subsegmental and subsegmental PE. There are enlarged bilateral hilar ly mph nodes. Heart size upper limits of normal. No pericardial effusion.. OTHER: Liver is diffusely low dense consistent with fatty infiltration. Small splenule lateral to th e spleen.. IMPRESSION: Suboptimal study no central pulmonary embolism. Cannot exclude smaller segmental and subs egmental PE on this study. Low lung volumes with new multifocal groundglass opacities consistent with Covid-19 infection.
[2020-04-30] MEDS ORDERED: DEXAMETHASONE SOD PHOSPHATE 4 MG/ML 1 ML VIAL IV STA (15:01)
[2020-04-30 15:31] VITALS: BP 119/74; PULSE 97; RESP 18; TEMP 98.1
[2020-04-30 19:45] LABS: Ferritin 560.7 ng/mL (22.0-322.0)
== END 2020-04-30 15:30 | disposition other institution (70) ==
LOC: EC 10:33
DX: U07.1 COVID-19 (principal); J12.82 Pneumonia due to coronavirus disease 2019; I10 Essential (primary) hypertension
CPT/HCPCS: 36415; 85379; 80053; 82728; 83605; 83615; 83735; 85025; 85610; 85730; 86140; 84145; 71045; 93970; 71275; 99284; 96374; J1100; Q9967

== ENCOUNTER → 2020-06-10 | Outpatient (CLI) | payer OTHER ==
[2020-06-10 23:20] LABS: HCT 44.4 % (39.6-50.0); MCH 27.7 pg (27.0-32.0); MCHC 31.5 g/dL (32.0-37.0); MCV 87.9 fL (80.0-97.0); Mean Platelet Volume 10.3 fL (9.5-12.2); Platelet Count 386 X 10*3/uL (140-440); RBC 5.05 X 10*6/uL (4.40-5.60); RDW 14.3 % (11.5-14.5); WBC 11.11 X 10*3/uL (4.50-10.00)
[2020-06-11 13:25] LABS: African American GFR (CKD) 114.9 (60.0-200.0); Albumin/Globulin Ratio 2.5 (1.60-3.17); Anion Gap 22.2 mmol/L (4.00-12.00); Carbon Dioxide 16.8 mmol/L (21.6-31.8); Non-African American GFR(CKD) 99.1 (60.0-200.0); Potassium 4.3 mmol/L (3.5-5.5); Total Bilirubin 0.6 mg/dL (0.2-1.2)
== END | disposition home or self-care (01) ==
LOC: LABWHC1 14:43
PROVIDERS: ATTEND Internal Medicine
DX: R10.9 Unspecified abdominal pain (principal); Z86.16 Personal history of COVID-19
CPT/HCPCS: 36415; 80053; 82150; 82607; 85027

== ENCOUNTER → 2020-06-17 | Outpatient (CLI) | payer OTHER ==
--- NOTE | 2020-06-17 08:28 | US ---
EXAMINATION TYPE: US abdomen complete DATE OF EXAM: 06/17/2020 COMPARISON: NONE CLINICAL HISTORY: R10.84 Abdominal Pain generalized. Patient states having covid last month and havin g generalized pain. Very limited exam due to patient large body habitus EXAM MEASUREMENTS: Liver Length: 22.3 cm Gallbladder Wall: 0.3 cm Spleen: 14.0 cm Right Kidney: 11.3 x 6.1 x 4.3 cm Left Kidney: 11.3 x 6.0 x 5.7 cm Pancreas: Obscured by bowel gas Liver: Very limited visualization, enlarged in size Gallbladder: wnl as visualized Evidence for sonographic Govea's sign: neg CBD: Obscured by overlying bowel gas Spleen: wnl Right Kidney: No hydronephrosis or masses seen, limited visualization Left Kidney: No hydronephrosis or masses seen Upper IVC: Obscured by overlying bowel gas Abd Aorta: Obscured by overlying bowel gas IMPRESSION: 1. Hepatomegaly. Nonspecific pattern to the liver can be seen with hepatic steatosis or hepatitis, co rrelate clinically. 2. There is some limitation due to overlying bowel gas as noted above. 3. Borderline splenomegaly.
== END | disposition home or self-care (01) ==
LOC: RADUSWWP 07:27
PROVIDERS: ATTEND Internal Medicine
DX: R16.2 Hepatomegaly with splenomegaly, not elsewhere classified (principal)
CPT/HCPCS: 76700

== ENCOUNTER → 2020-07-21 | Outpatient (CLI) | payer OTHER ==
[2020-07-22 20:21] LABS: Albumin 4.8 g/dL (3.80-4.90); Albumin/Globulin Ratio 2.09 (1.60-3.17); Bilirubin, Conjugated 0.2 mg/dL (0.20-0.40); Bilirubin,Unconjugated 0.4 mg/dL; Globulin 2.3 g/dL (1.6-3.3); Total Bilirubin 0.6 mg/dL (0.3-1.2); Total Protein 7.1 g/dL (6.2-8.2)
[2020-07-22 20:58] LABS: Hepatitis A Antibody IgM Non-Reactive (Non-Reactive); Hepatitis B Core IgM Non-Reactive (Non-Reactive); Hepatitis B Surface Antigen Non-Reactive (Non-Reactive); Hepatitis C IgG Antibody Non-Reactive (Non-Reactive)
== END | disposition home or self-care (01) ==
LOC: LABWHC1 14:49
PROVIDERS: ATTEND Physician Assistant
DX: R74.01 Elevation of levels of liver transaminase levels (principal)
CPT/HCPCS: 36415; 80074; 80076

== ENCOUNTER → 2020-10-14 | Outpatient (CLI) | payer OTHER ==
[2020-10-14 20:14] LABS: Albumin 4.9 g/dL (3.80-4.90); Albumin/Globulin Ratio 2.04 (1.60-3.17); Bilirubin, Conjugated 0.2 mg/dL (0.20-0.40); Bilirubin,Unconjugated 0.4 mg/dL; Globulin 2.4 g/dL (1.6-3.3); Total Bilirubin 0.6 mg/dL (0.3-1.2); Total Protein 7.3 g/dL (6.2-8.2)
== END | disposition home or self-care (01) ==
LOC: LABWHC1 14:48
PROVIDERS: ATTEND Physician Assistant
DX: K76.0 Fatty (change of) liver, not elsewhere classified (principal)
CPT/HCPCS: 36415; 80076

== ENCOUNTER → 2022-07-03 | Outpatient (CLI) | payer OTHER ==
--- NOTE | 2022-07-03 15:08 | US ---
EXAMINATION TYPE: US kidneys/renal and bladder DATE OF EXAM: 07/03/2022 COMPARISON: Abdominal US 06/17/20 CLINICAL INDICATION: Male, 36 years old with history of R31.9 HEMATURIA, UNSPECIFIED; Hematuria. EXAM MEASUREMENTS: Right Kidney: 13.0 x 6.9 x 6.4 cm Left Kidney: 12.6 x 5.4 x 5.9 cm Exam is very limited due to patient body habitus. Right Kidney: Appears enlarged. No hydronephrosis or masses seen Left Kidney: Appears enlarged. No hydronephrosis or masses seen Bladder: Appears anechoic. Bilateral Jets seen: Not seen during exam. IMPRESSION: 1. No acute ultrasound abnormality bilateral kidneys.
[2022-07-04 02:26] LABS: African American GFR (CKD) 128.7 (60.0-200.0); Albumin 4.2 g/dL (3.8-4.9); Albumin/Globulin Ratio 1.4 (1.60-3.17); BUN/Creat Ratio 14.44 Ratio (12.00-20.00); Calcium 9.8 mg/dL (8.7-10.3); Potassium 4.8 mmol/L (3.5-5.5); Total Bilirubin 0.2 mg/dL (0.30-1.20); Total Protein 7.2 g/dL (6.2-8.2)
[2022-07-04 02:27] LABS: HGB 14.1 g/dL (13.0-17.0); MCH 26.6 pg (27.0-32.0); MCV 88.7 fL (80.0-97.0); Mean Platelet Volume 10.1 fL (9.5-12.2); NRBC Per 100 WBC 0 /100 WBCS (0.0-0.0); Platelet Count 346 X 10*3/uL (140-440); RDW 15.1 % (11.5-14.5)
== END | disposition home or self-care (01) ==
LOC: RADUSWWP 13:31
PROVIDERS: ATTEND Internal Medicine
DX: I49.9 Cardiac arrhythmia, unspecified (principal); I10 Essential (primary) hypertension; R31.9 Hematuria, unspecified
CPT/HCPCS: 36415; 76770; 80053; 84443; 85027

== ENCOUNTER → 2024-05-14 | Outpatient (CLI) | payer OTHER ==
[2024-05-14 18:37] LABS: ALT 33 U/L (10-49); AST 37 U/L (14-35); Albumin 4.3 g/dL (3.8-4.9); Albumin/Globulin Ratio 1.48 Ratio (1.60-3.17); Alkaline Phosphatase 63 U/L (41-126); BUN/Creat Ratio 12.33 Ratio (12.00-20.00); Blood Urea Nitrogen 11.1 mg/dL (9.0-27.0); Calcium 9.7 mg/dL (8.7-10.3); Chloride 101 mmol/L (96-109); Chol/HDL Ratio 3.35 Ratio; Globulin 2.9 g/dL (1.6-3.3); Glucose 83 mg/dL (70-110); LDL Cholesterol,Calculated 59.9 mg/dL (0.0-131.0); Potassium 4.5 mmol/L (3.5-5.5); Sodium 139 mmol/L (135-145); Total Bilirubin 0.6 mg/dL (0.3-1.2); Total Protein 7.2 g/dL (6.2-8.2)
== END | disposition home or self-care (01) ==
LOC: LABWHC1 14:10
PROVIDERS: ATTEND Internal Medicine
DX: E78.5 Hyperlipidemia, unspecified (principal)
CPT/HCPCS: 36415; 80053; 80061